=== PATIENT | female | born 1935 | race Caucasian/White ===

== ENCOUNTER 2018-06-07 14:18 | Inpatient (IN) | payer MEDICARE, BC ==
[2018-06-07] MEDS ORDERED: MORPHINE SULFATE 4 MG/ML SYRINGE IVP STA (14:46)
[2018-06-07] MEDS ORDERED: SODIUM CHLORIDE 0.9% 500 ML 500 ML IV ONE (14:52)
--- NOTE | 2018-06-07 14:55 | ED ---
General Adult HPI - General Chief complaint: Fall Stated complaint: Fall Time Seen by Provider: 06/07/18 14:35 Source: patient, EMS, RN notes reviewed Mode of arrival: EMS Limitations: no limitations - History of Present Illness Initial comments: 82-year-old female With a past medical history of asthma, diabetes mellitus, GERD, osteoarthritis presents to the emergency department for chief complaint of fall. Patient is currently staying in an adult foster care facility called [facility]. Patient was apparently transferring from a chair to the bed when she fell. patient states she does not remember this fall. It is unclear if patient lost consciousness prior to fall or after the fall. Patient is not sure if she hit her head but denies headache or neck pain. Patient is complaining of left shoulder pain. Patient states this is more painful when she moves her shoulder. Patient has no other complaints at this time including shortness of breath, chest pain, abdominal pain, nausea or vomiting, headache, or visual changes. - Related Data Home Medications Medication Instructions Recorded Confirmed ALPRAZolam [Xanax] 0.25 mg PO BID PRN 06/07/18 06/07/18 Acetaminophen [Tylenol] 650 mg PO Q6H PRN 06/07/18 06/07/18 Allopurinol [Zyloprim] 200 mg PO DAILY 06/07/18 06/07/18 Budesonide [Pulmicort Flexhaler] 2 puff INHALATION RT-BID 06/07/18 06/07/18 Budesonide [Pulmicort] 0.5 mg INHALATION RT-BID 06/07/18 06/07/18 Cetirizine HCl [Zyrtec] 10 mg PO DAILY 06/07/18 06/07/18 Colloidal Oatmeal [Eucerin Eczema 1 applic TOPICAL BID 06/07/18 06/07/18 Relief] Docusate [Colace] 100 mg PO DAILY 06/07/18 06/07/18 Ergocalciferol (Vitamin D2) 50,000 unit PO Q7D 06/07/18 06/07/18 [Drisdol] Furosemide [Lasix] 20 mg PO DAILY 06/07/18 06/07/18 Hydrocodone/Acetaminophen [[place] 1 tab PO TID PRN 06/07/18 06/07/18 7.5-325] Levalbuterol Nebulized [Xopenex 1.25 mg INHALATION RT-QID PRN 06/07/18 06/07/18 Nebulized] Levothyroxine Sodium [Synthroid] 200 mcg PO SUMOTUTHFRSA 06/07/18 06/07/18 Montelukast [Singulair] 10 mg PO DAILY 06/07/18 06/07/18 Omeprazole 40 mg PO DAILY 06/07/18 06/07/18 Zolpidem [Ambien] 10 mg PO HS 06/07/18 06/07/18 predniSONE 20 mg PO DAILY 06/07/18 06/07/18 sitaGLIPtin [Januvia] 50 mg PO DAILY 06/07/18 06/07/18 traZODone HCL [Desyrel] 100 mg PO HS 06/07/18 06/07/18 Allergies Allergy/AdvReac Type Severity Reaction Status Date / Time aspirin Allergy Rash/Hives Verified 06/07/18 17:36 doxycycline Allergy Nausea & Verified 06/07/18 17:36 Vomiting & Diarrhea meloxicam [From Mobic] Allergy Rash/Hives Verified 06/07/18 17:36 Penicillins Allergy Rash/Hives Verified 06/07/18 17:36 Sulfa (Sulfonamide Allergy Rash/Hives Verified 06/07/18 17:36 Antibiotics) Review of Systems ROS Statement: Those systems with pertinent positive or pertinent negative responses have been documented in the HPI. ROS Other: All systems not noted in ROS Statement are negative. Past Medical History Past Medical History: Asthma, Diabetes Mellitus, GERD/Reflux, Osteoarthritis (OA), Thyroid Disorder Additional Past Medical History / Comment(s): obesity, gout, seasonal allergies History of Any Multi-Drug Resistant Organisms: None Reported Past Surgical History: Cholecystectomy, Hysterectomy, Tonsillectomy Additional Past Surgical History / Comment(s): cataracts Past Psychological History: No Psychological Hx Reported Smoking Status: Former smoker Past Alcohol Use History: None Reported Past Drug Use History: None Reported - Past Family History Daughter(s) History Unknown: Yes Mother Additional Family Medical History / Comment(s): Mother from Aneurysm per patients daughter. General Exam Limitations: no limitations General appearance: alert, in no apparent distress Head exam: Present: atraumatic, normocephalic, normal inspection Eye exam: Present: normal appearance, PERRL, EOMI. Absent: scleral icterus, conjunctival injection, periorbital swelling ENT exam: Present: normal exam, normal oropharynx, mucous membranes moist, TM's normal bilaterally, normal external ear exam Neck exam: Present: normal inspection, full ROM. Absent: tenderness, meningismus, lymphadenopathy Respiratory exam: Present: normal lung sounds bilaterally. Absent: respiratory distress, wheezes, rales, rhonchi, stridor Cardiovascular Exam: Present: regular rate, normal rhythm, normal heart sounds. Absent: systolic murmur, diastolic murmur, rubs, gallop, clicks GI/Abdominal exam: Present: soft, normal bowel sounds. Absent: distended, tenderness, guarding, rebound, rigid Extremities exam: Present: tenderness (Tenderness noted to generalized left shoulder), normal capillary refill (Capillary refill less than 2 seconds, radial pulse 2+ in the left upper extremity), other (Sensation intact in the left upper extremity). Absent: full ROM (Patient unable to move left shoulder) Neurological exam: Present: alert, oriented X3, CN II-XII intact Psychiatric exam: Present: normal affect, normal mood Course Vital Signs 06/07/18 06/07/18 06/07/18 14:19 15:34 16:28 Temperature 97.6 F Pulse Rate 101 H 95 99 Respiratory 18 18 18 Rate Blood Pressure 125/115 132/87 132/87 O2 Sat by Pulse 99 97 96 Oximetry 06/07/18 06/07/18 06/07/18 17:13 20:43 21:29 Temperature 98.3 F Pulse Rate 102 H 86 89 Respiratory 18 18 18 Rate Blood Pressure 145/84 154/93 162/96 O2 Sat by Pulse 94 L 98 95 Oximetry - Reevaluation(s) Reevaluation #1: 06/07/18 15:17 I did attempt to call [facility] to clarify nature of fall but was unsuccessful. I did leave a message. EKG Findings - EKG Comments: EKG Findings:: Sinus tachycardia, ventricular rate 105, QRS faith 94, QTc 465, no ST elevation or depression Medical Decision Making - Medical Decision Making 82-year-old female presents to the emergency department for a chief complaint of fall. Patient is apparently a 2 person assist to bed according to her. Patient states she fell although she does not remember this fall. It is unclear patient lost consciousness prior to or after fall. I did attempt to obtain more history however nurse is unsure. I did try to call the skilled nursing facility and left a message but did not receive a call back. CBC does show a white count of 16.9 with a urinary tract infection with 174 white blood cells and positive nitrites. Patient given Rocephin. Patient is a type II diabetic, glucose is 490. This is currently being managed with fluids. Troponin 0.025, will be trended given patient's fall and loss of consciousness. however, likely related to renal function. After urosepsis established at 1525 lactic acid was retrieved at 1700 which showed 3.9. Patient was given 30 mls/kg based on an ideal body weight of 52.2 kg within 3 hours of sepsis diagnosis. Patient will be admitted for further management. - Lab Data Result diagrams: 06/08/18 07:23 06/08/18 07:23 Lab Results 06/07/18 06/07/18 06/07/18 Range/Units 15:25 15:25 15:25 WBC 16.9 H (3.8-10.6) k/uL RBC 4.60 (3.80-5.40) m/uL Hgb 13.0 (11.4-16.0) gm/dL Hct 41.8 (34.0-46.0) % MCV 91.0 (80.0-100.0) fL MCH 28.3 (25.0-35.0) pg MCHC 31.1 (31.0-37.0) g/dL RDW 14.0 (11.5-15.5) % Plt Count 240 (150-450) k/uL Neutrophils % 86 % Lymphocytes % 9 % Monocytes % 4 % Eosinophils % 1 % Basophils % 0 % Neutrophils # 14.5 H (1.3-7.7) k/uL Lymphocytes # 1.5 (1.0-4.8) k/uL Monocytes # 0.6 (0-1.0) k/uL Eosinophils # 0.1 (0-0.7) k/uL Basophils # 0.1 (0-0.2) k/uL Hypochromasia Slight Sodium 133 L (137-145) mmol/L Potassium 4.0 (3.5-5.1) mmol/L Chloride 96 L (98-107) mmol/L Carbon Dioxide 21 L (22-30) mmol/L Anion Gap 16 mmol/L BUN 30 H (7-17) mg/dL Creatinine 1.60 H (0.52-1.04) mg/dL Est GFR (CKD-EPI)AfAm 34 (>60 ml/min/1.73 sqM) Est GFR (CKD-EPI)NonAf 30 (>60 ml/min/1.73 sqM) Glucose 490 H (74-99) mg/dL Lactic Ac Sepsis Rflx Plasma Lactic Acid Codey (0.7-2.0) mmol/L Calcium 8.9 (8.4-10.2) mg/dL Total Bilirubin 0.9 (0.2-1.3) mg/dL AST 23 (14-36) U/L ALT 31 (9-52) U/L Alkaline Phosphatase 59 (38-126) U/L Troponin I 0.025 (0.000-0.034) ng/mL Total Protein 6.4 (6.3-8.2) g/dL Albumin 3.6 (3.5-5.0) g/dL Urine Color Urine Appearance (Clear) Urine pH (5.0-8.0) Ur Specific [place] (1.001-1.035) Urine Protein (Negative) Urine Glucose (UA) (Negative) Urine Ketones (Negative) Urine Blood (Negative) Urine Nitrite (Negative) Urine Bilirubin (Negative) Urine Urobilinogen (<2.0) mg/dL Ur Leukocyte Esterase (Negative) Urine RBC (0-5) /hpf Urine WBC (0-5) /hpf Urine Bacteria (None) /hpf Urine Mucus (None) /hpf Urine Yeast (Budding) (None) /hpf Acetone, Qual Negative (Negative) 06/07/18 06/07/18 06/07/18 Range/Units 15:25 17:00 17:30 WBC (3.8-10.6) k/uL RBC (3.80-5.40) m/uL Hgb (11.4-16.0) gm/dL Hct (34.0-46.0) % MCV (80.0-100.0) fL MCH (25.0-35.0) pg MCHC (31.0-37.0) g/dL RDW (11.5-15.5) % Plt Count (150-450) k/uL Neutrophils % % Lymphocytes % % Monocytes % % Eosinophils % % Basophils % % Neutrophils # (1.3-7.7) k/uL Lymphocytes # (1.0-4.8) k/uL Monocytes # (0-1.0) k/uL Eosinophils # (0-0.7) k/uL Basophils # (0-0.2) k/uL Hypochromasia Sodium (137-145) mmol/L Potassium (3.5-5.1) mmol/L Chloride (98-107) mmol/L Carbon Dioxide (22-30) mmol/L Anion Gap mmol/L BUN (7-17) mg/dL Creatinine (0.52-1.04) mg/dL Est GFR (CKD-EPI)AfAm (>60 ml/min/1.73 sqM) Est GFR (CKD-EPI)NonAf (>60 ml/min/1.73 sqM) Glucose (74-99) mg/dL Lactic Ac Sepsis Rflx Y Plasma Lactic Acid Codey 3.9 H* (0.7-2.0) mmol/L Calcium (8.4-10.2) mg/dL Total Bilirubin (0.2-1.3) mg/dL AST (14-36) U/L ALT (9-52) U/L Alkaline Phosphatase (38-126) U/L Troponin I (0.000-0.034) ng/mL Total Protein (6.3-8.2) g/dL Albumin (3.5-5.0) g/dL Urine Color Yellow Urine Appearance Turbid H (Clear) Urine pH 5.0 (5.0-8.0) Ur Specific [place] 1.014 (1.001-1.035) Urine Protein 1+ H (Negative) Urine Glucose (UA) 1+ H (Negative) Urine Ketones Negative (Negative) Urine Blood Small H (Negative) Urine Nitrite Positive H (Negative) Urine Bilirubin Negative (Negative) Urine Urobilinogen <2.0 (<2.0) mg/dL Ur Leukocyte Esterase Large H (Negative) Urine RBC 112 H (0-5) /hpf Urine WBC 174 H (0-5) /hpf Urine Bacteria Many H (None) /hpf Urine Mucus Occasional H (None) /hpf Urine Yeast (Budding) Many H (None) /hpf Acetone, Qual (Negative) Disposition Clinical Impression: Syncope, Urinary tract infection, Fx clavicle shaft-closed Disposition: ADMITTED IP TO THIS HOSP Condition: Fair Is patient prescribed a controlled substance at d/c from ED?: No Time of Disposition: 16:47
[2018-06-07] MEDS ORDERED: ONDANSETRON ODT 4 MG TAB PO STA (15:11)
[2018-06-07] MEDS ORDERED: ONDANSETRON 4 MG/2 ML VIAL IVP STA (15:27)
[2018-06-07 15:42] LABS: Basophils # (A) 0.1 k/uL (0-0.2); Basophils % (A) 0 %; Eosinophils # (A) 0.1 k/uL (0-0.7); Eosinophils % (A) 1 %; HCT 41.8 % (34.0-46.0); Hypochromasia Slight; Lymphocytes # (A) 1.5 k/uL (1.0-4.8); Lymphocytes % (A) 9 %; MCH 28.3 pg (25.0-35.0); MCHC 31.1 g/dL (31.0-37.0); Monocytes # (A) 0.6 k/uL (0-1.0); Monocytes % (A) 4 %; Neutrophils # (A) 14.5 k/uL (1.3-7.7); Neutrophils % (A) 86 %; Platelet Count 240 k/uL (150-450); WBC 16.9 k/uL (3.8-10.6)
[2018-06-07 16:00] LABS: ALT 31 U/L (9-52); AST 23 U/L (14-36); Albumin 3.6 g/dL (3.5-5.0); Alkaline Phosphatase 59 U/L (38-126); Anion Gap 16 mmol/L; Appearance,Urine Turbid (Clear); Bacteria,Urine Many /hpf; Bilirubin,Urine Negative (Negative); Blood Urea Nitrogen 30 mg/dL (7-17); Blood,Urine Small (Negative); Budding Yeast,Urine Many /hpf; Calcium 8.9 mg/dL (8.4-10.2); Carbon Dioxide 21 mmol/L (22-30); Chloride 96 mmol/L (98-107); Color,Urine Yellow; Glucose 490 mg/dL (74-99); Glucose,Urine (UA) 1+ (Negative); Ketones,Urine Negative (Negative); Leukocyte Esterase,Urine Large (Negative); Mucus,Urine Occasional /hpf; Nitrite,Urine Positive (Negative); Protein,Urine 1+ (Negative); RBC,Urine 112 /hpf (0-5); Sodium 133 mmol/L (137-145); Specific Gravity,Urine 1.014 (1.001-1.035); Total Bilirubin 0.9 mg/dL (0.2-1.3); Total Protein 6.4 g/dL (6.3-8.2); Urobilinogen,Urine <2.0 mg/dL (<2.0); WBC,Urine 174 /hpf (0-5)
--- NOTE | 2018-06-07 16:05 | CT ---
EXAMINATION TYPE: CT brain ling [place] DATE OF EXAM: 06/07/2018 COMPARISON: None HISTORY: Fall today with left shoulder pain CT DLP: 1567.[address] of the brain was performed. The ventricles, basal cisterns and sulci overlying the cerebral convexities demonstrate mild enlargem ent. There is no evidence for intracranial hemorrhage or sulcal effacement. There is decreased attenuatio n about the periventricular white matter and deep white matter of both cerebral hemispheres, compatib le with chronic small vessel ischemia. No mass effects are seen. If symptoms persist consider MRI. Osseous calvarium is intact. IMPRESSION: 1. Age related atrophic and chronic small vessel ischemic change without acute intracranial process seen at this time. CT Cervical Spine: Unenhanced CT of the cervical spine was performed with bone and soft tissue window settings submitted . Coronal and sagittal reconstruction is obtained. There is normal alignment and prevertebral soft tissues. No evidence for acute cervical fracture . Scattered degenerative disc disease and spondylosis. Biapical scarring. IMPRESSION: 1. No evidence for acute fracture or subluxation of the cervical spine.
--- NOTE | 2018-06-07 16:07 | XR ---
EXAMINATION TYPE: XR shoulder complete LT DATE OF EXAM: 06/07/2018 COMPARISON: NONE HISTORY: shoulder pain after fall TECHNIQUE: Three views are submitted. FINDINGS: There is no oblique fracture of the midshaft of the left clavicle. Arthropathy of the shoulder. Surgi richy clips are seen overlying the mediastinum. IMPRESSION: 1. Mildly displaced fracture midshaft left clavicle
[2018-06-07] MEDS ORDERED: SODIUM CHLORIDE 0.9% 500 ML 500 ML IV STA (16:21)
[2018-06-07] MEDS ORDERED: cefTRIAXone IN SWFI 1,000 MG/10 ML SYRINGE IVP STA (16:21)
[2018-06-07] MEDS ORDERED: SODIUM CHLORIDE 0.9% 600 ML IV STA (17:50)
[2018-06-07] MEDS ORDERED: NALOXONE 0.4 MG/ML 1 ML VIAL IV PRN (18:00)
[2018-06-07] MEDS ORDERED: ONDANSETRON 4 MG/2 ML VIAL IVP PRN (18:00)
[2018-06-07] MEDS: MORPHINE SULFATE 4 MG/ML SYRINGE IV PRN (21:27)
[2018-06-07] MEDS: SODIUM CHLORIDE 0.9% 1,000 ML IV SCH (21:27)
[2018-06-07 22:35] LABS: Glucose,Whole Blood 382 mg/dL (75-99)
[2018-06-07] MEDS ORDERED: ACETAMINOPHEN TAB 325 MG TAB PO PRN (23:42)
[2018-06-07] MEDS ORDERED: FUROSEMIDE 20 MG TAB PO PRN (23:42)
[2018-06-07] MEDS ORDERED: ALPRAZolam 0.25 MG TAB PO PRN (23:42)
[2018-06-07] MEDS ORDERED: ZOLPIDEM 10 MG TAB PO SCH (23:45)
[2018-06-07] MEDS ORDERED: traZODone HCL 100 MG TAB PO SCH (23:45)
[2018-06-07 23:59] LABS: Glucose,Whole Blood 385 mg/dL (75-99)
[2018-06-08] MEDS: INSULIN ASPART (NovoLOG) 100 UNIT/ML VIAL SQ SCH ×5 (00:01→21:09)
[2018-06-08] MEDS: MORPHINE SULFATE 4 MG/ML SYRINGE IV PRN ×2 (03:05→08:41)
[2018-06-08 05:52] LABS: Glucose,Whole Blood 215 mg/dL (75-99)
[2018-06-08] MEDS ORDERED: LEVOTHYROXINE 100 MCG TAB PO SCH (06:30)
[2018-06-08] MEDS: PANTOPRAZOLE 40 MG TABLET PO SCH (06:31)
[2018-06-08] MEDS: LEVOTHYROXINE 100 MCG TAB PO SCH (06:31)
[2018-06-08] MEDS: SODIUM CHLORIDE 0.9% 1,000 ML IV SCH ×3 (06:32→21:07)
[2018-06-08] MEDS: BUDESONIDE 0.5 MG/2 ML NEBU INHALATION SCH ×2 (07:53→19:05)
[2018-06-08] MEDS: ALBUTEROL NEBULIZED 2.5 MG/3 ML INHALATION PRN ×2 (07:53→19:05)
[2018-06-08 08:32] LABS: Calcium 7.9 mg/dL (8.4-10.2)
[2018-06-08 08:38] LABS: Potassium 4.6 mmol/L (3.5-5.1)
[2018-06-08] MEDS: DOCUSATE 100 MG CAP PO SCH (08:42)
[2018-06-08] MEDS: LORATADINE 10 MG TAB PO SCH (08:42)
[2018-06-08] MEDS: MONTELUKAST 10 MG TAB PO SCH (08:42)
[2018-06-08] MEDS: FUROSEMIDE 20 MG TAB PO SCH (08:42)
[2018-06-08] MEDS: predniSONE 20 MG TAB PO SCH (08:42)
[2018-06-08] MEDS: ALLOPURINOL 100 MG TAB PO SCH (08:42)
[2018-06-08] MEDS ORDERED: cefTRIAXone IN SWFI 1,000 MG/10 ML SYRINGE IVP SCH (09:00)
[2018-06-08 10:14] LABS: Basophils % (A) 0 %; Eosinophils # (A) 0.1 k/uL (0-0.7); Eosinophils % (A) 1 %; HCT 36.5 % (34.0-46.0); HGB 11.6 gm/dL (11.4-16.0); Lymphocytes # (A) 2.2 k/uL (1.0-4.8); Lymphocytes % (A) 18 %; MCHC 31.7 g/dL (31.0-37.0); MCV 88.3 fL (80.0-100.0); Mean Platelet Volume 9.7; Monocytes # (A) 0.6 k/uL (0-1.0); Monocytes % (A) 5 %; Neutrophils # (A) 9.3 k/uL (1.3-7.7); Neutrophils % (A) 76 %; Platelet Count 130 k/uL (150-450); RBC 4.14 m/uL (3.80-5.40); RDW 14.2 % (11.5-15.5); WBC 12.2 k/uL (3.8-10.6)
[2018-06-08 11:57] LABS: Glucose,Whole Blood 232 mg/dL (75-99)
[2018-06-08] MEDS: HYDROcodone/APAP 7.5-325MG 1 EACH TAB PO PRN ×2 (13:43→21:09)
--- NOTE | 2018-06-08 14:14 | P.HPIM ---
History of Present Illness H&P Date: 06/08/18 Chief Complaint: Fall with syncope and UTI This is a 82-year-old female, patient of Dr. Cha. Patient lives at [facility] and [facility]. She has a known past medical history of diabetes, asthma, GERD, osteoarthritis, hypothyroidism, recurrent urinary tract infections and an indwelling Her catheter. It is unclear why patient has a indwelling Her catheter. She reports since due to her recurrent UTIs. Patient was brought into the ER after having a fall and syncopal episode. Patient was being transferred from her chair to the bed when she fell. Patient does not remember the fall or passing out. But it appears that she may have had a syncopal episode. She also had a fall and possible syncopal episode last Thursday as well. Patient came into the ER for further evaluation and treatment. Cardiology is been placed on consult. EKG had shown sinus tachycardia with a first-degree AV block heart rate 105. Patient had a computed tomography scan of the brain and cervical spine no evidence of any acute intracranial changes and no fractures. She did have a mildly displaced mid shaft left clavicle fracture noted on shoulder x-ray. Orthopedics have been placed on consult. Patient was found to have evidence of a urinary tract infection and started on IV Rocephin. Likely catheter associated UTI. Urine culture pending. Consult infectious disease and urology. Patient did have evidence of sepsis with elevated white count tachycardic and elevated lactic acid. Improving with IV fluids. Troponins were negative 3. Patient denies any chest pain, shortness breath, nausea or vomiting, bowel movement changes. She reports a decrease in appetite. She did have a creatinine of 1.6. Blood sugars elevated at 490 down to 272 acetone was negative. Review of Systems Please refer to HPI otherwise unremarkable Past Medical History Past Medical History: Asthma, Diabetes Mellitus, GERD/Reflux, Osteoarthritis (OA), Pneumonia, Thyroid Disorder Additional Past Medical History / Comment(s): obesity, gout, seasonal allergies History of Any Multi-Drug Resistant Organisms: None Reported Past Surgical History: Cholecystectomy, Hysterectomy, Tonsillectomy Additional Past Surgical History / Comment(s): cataracts Past Anesthesia/Blood Transfusion Reactions: No Reported Reaction Past Psychological History: Depression Smoking Status: Former smoker Past Alcohol Use History: None Reported Past Drug Use History: None Reported - Past Family History Daughter(s) History Unknown: Yes Mother Additional Family Medical History / Comment(s): Mother from Aneurysm per patients daughter. Medications and Allergies Home Medications Medication Instructions Recorded Confirmed Type ALPRAZolam [Xanax] 0.25 mg PO BID PRN 06/07/18 06/07/18 History Acetaminophen [Tylenol] 650 mg PO Q6H PRN 06/07/18 06/07/18 History Allopurinol [Zyloprim] 200 mg PO DAILY 06/07/18 06/07/18 History Budesonide [Pulmicort Flexhaler] 2 puff INHALATION RT-BID 06/07/18 06/07/18 History Budesonide [Pulmicort] 0.5 mg INHALATION RT-BID 06/07/18 06/07/18 History Cetirizine HCl [Zyrtec] 10 mg PO DAILY 06/07/18 06/07/18 History Colloidal Oatmeal [Eucerin Eczema 1 applic TOPICAL BID 06/07/18 06/07/18 History Relief] Docusate [Colace] 100 mg PO DAILY 06/07/18 06/07/18 History Ergocalciferol (Vitamin D2) 50,000 unit PO Q7D 06/07/18 06/07/18 History [Drisdol] Furosemide [Lasix] 20 mg PO DAILY 06/07/18 06/07/18 History Hydrocodone/Acetaminophen [[place] 1 tab PO TID PRN 06/07/18 06/07/18 History 7.5-325] Levalbuterol Nebulized [Xopenex 1.25 mg INHALATION RT-QID PRN 06/07/18 06/07/18 History Nebulized] Levothyroxine Sodium [Synthroid] 200 mcg PO SUMOTUTHFRSA 06/07/18 06/07/18 History Montelukast [Singulair] 10 mg PO DAILY 06/07/18 06/07/18 History Omeprazole 40 mg PO DAILY 06/07/18 06/07/18 History Zolpidem [Ambien] 10 mg PO HS 06/07/18 06/07/18 History predniSONE 20 mg PO DAILY 06/07/18 06/07/18 History sitaGLIPtin [Januvia] 50 mg PO DAILY 06/07/18 06/07/18 History traZODone HCL [Desyrel] 100 mg PO HS 06/07/18 06/07/18 History Allergies Allergy/AdvReac Type Severity Reaction Status Date / Time aspirin Allergy Rash/Hives Verified 06/07/18 17:36 doxycycline Allergy Nausea & Verified 06/07/18 17:36 Vomiting & Diarrhea meloxicam [From Mobic] Allergy Rash/Hives Verified 06/07/18 17:36 Penicillins Allergy Rash/Hives Verified 06/07/18 17:36 Sulfa (Sulfonamide Allergy Rash/Hives Verified 06/07/18 17:36 Antibiotics) Physical Exam Vitals: Vital Signs Temp Pulse Pulse Resp BP BP Pulse Ox 06/08/18 12:00 98 F 111 H 16 105/69 96 06/08/18 08:11 102 H 06/08/18 08:00 98.2 F 105 H 20 123/82 96 06/08/18 07:56 108 H 20 96 06/08/18 03:18 98.2 F 100 20 136/92 97 06/08/18 00:00 98.0 F 91 18 173/91 98 06/07/18 21:29 98.3 F 89 18 162/96 95 06/07/18 20:43 86 18 154/93 98 06/07/18 17:13 102 H 18 145/84 94 L 06/07/18 16:28 99 18 132/87 96 06/07/18 15:34 95 18 132/87 97 06/07/18 14:19 97.6 F 101 H 18 125/115 99 Intake and Output 06/07/18 06/08/18 06/08/18 22:59 06:59 14:59 Intake Total 970 Output Total 450 Balance -450 970 Intake: IV 650 Sodium Chloride 0.9% 1, 600 000 ml @ 75 mls/hr IV . [id number] [facility] Rx#:[id number] cefTRIAXone 1 gm In 50 Sodium Chloride 0.9% 50 ml @ 100 mls/hr IVPB DAILY [facility] Rx#:[id number] Oral 320 Output: Urine 450 Other: Weight 125.5 kg Head normocephalic Neck supple Lungs clear to auscultation bilaterally no wheezing or crackles Heart regular rate and rhythm S1-S2, no rub or gallop Abdomen is soft nontender nondistended positive bowel sounds no hepatosplenomegaly. Has Her catheter in place Extremities no edema lower extremities. Left arm in sling. Some bruising noted along the left Clavicle with swelling. +2 radial pulse Neuro alert and orientated to 2. Did not know the year Results CBC & Chem 7: 06/08/18 07:23 06/08/18 07:23 Labs: Abnormal Lab Results - Last 24 Hours (Table) 06/07/18 06/07/18 06/07/18 Range/Units 15:25 15:25 15:25 WBC 16.9 H (3.8-10.6) k/uL Plt Count (150-450) k/uL Neutrophils # 14.5 H (1.3-7.7) k/uL Sodium 133 L (137-145) mmol/L Chloride 96 L (98-107) mmol/L Carbon Dioxide 21 L (22-30) mmol/L BUN 30 H (7-17) mg/dL Creatinine 1.60 H (0.52-1.04) mg/dL Glucose 490 H (74-99) mg/dL POC Glucose (mg/dL) (75-99) mg/dL Plasma Lactic Acid [place] (0.7-2.0) mmol/L Calcium (8.4-10.2) mg/dL Urine Appearance Turbid H (Clear) Urine Protein 1+ H (Negative) Urine Glucose (UA) 1+ H (Negative) Urine Blood Small H (Negative) Urine Nitrite Positive H (Negative) Ur Leukocyte Esterase Large H (Negative) Urine RBC 112 H (0-5) /hpf Urine WBC 174 H (0-5) /hpf Urine Bacteria Many H (None) /hpf Urine Mucus Occasional H (None) /hpf Urine Yeast (Budding) Many H (None) /hpf 06/07/18 06/07/18 06/07/18 Range/Units 17:00 22:22 23:58 WBC (3.8-10.6) k/uL Plt Count (150-450) k/uL Neutrophils # (1.3-7.7) k/uL Sodium (137-145) mmol/L Chloride (98-107) mmol/L Carbon Dioxide (22-30) mmol/L BUN (7-17) mg/dL Creatinine (0.52-1.04) mg/dL Glucose (74-99) mg/dL POC Glucose (mg/dL) 382 H 385 H (75-99) mg/dL Plasma Lactic Acid [place] 3.9 H* (0.7-2.0) mmol/L Calcium (8.4-10.2) mg/dL Urine Appearance (Clear) Urine Protein (Negative) Urine Glucose (UA) (Negative) Urine Blood (Negative) Urine Nitrite (Negative) Ur Leukocyte Esterase (Negative) Urine RBC (0-5) /hpf Urine WBC (0-5) /hpf Urine Bacteria (None) /hpf Urine Mucus (None) /hpf Urine Yeast (Budding) (None) /hpf 06/08/18 06/08/18 06/08/18 Range/Units 05:51 07:23 07:23 WBC 12.2 H (3.8-10.6) k/uL Plt Count 130 L (150-450) k/uL Neutrophils # 9.3 H (1.3-7.7) k/uL Sodium 135 L (137-145) mmol/L Chloride (98-107) mmol/L Carbon Dioxide (22-30) mmol/L BUN 29 H (7-17) mg/dL Creatinine 1.36 H (0.52-1.04) mg/dL Glucose 212 H (74-99) mg/dL POC Glucose (mg/dL) 215 H (75-99) mg/dL Plasma Lactic Acid [place] (0.7-2.0) mmol/L Calcium 7.9 L (8.4-10.2) mg/dL Urine Appearance (Clear) Urine Protein (Negative) Urine Glucose (UA) (Negative) Urine Blood (Negative) Urine Nitrite (Negative) Ur Leukocyte Esterase (Negative) Urine RBC (0-5) /hpf Urine WBC (0-5) /hpf Urine Bacteria (None) /hpf Urine Mucus (None) /hpf Urine Yeast (Budding) (None) /hpf 06/08/18 Range/Units 11:47 WBC (3.8-10.6) k/uL Plt Count (150-450) k/uL Neutrophils # (1.3-7.7) k/uL Sodium (137-145) mmol/L Chloride (98-107) mmol/L Carbon Dioxide (22-30) mmol/L BUN (7-17) mg/dL Creatinine (0.52-1.04) mg/dL Glucose (74-99) mg/dL POC Glucose (mg/dL) 232 H (75-99) mg/dL Plasma Lactic Acid [place] (0.7-2.0) mmol/L Calcium (8.4-10.2) mg/dL Urine Appearance (Clear) Urine Protein (Negative) Urine Glucose (UA) (Negative) Urine Blood (Negative) Urine Nitrite (Negative) Ur Leukocyte Esterase (Negative) Urine RBC (0-5) /hpf Urine WBC (0-5) /hpf Urine Bacteria (None) /hpf Urine Mucus (None) /hpf Urine Yeast (Budding) (None) /hpf Microbiology - Last 24 Hours (Table) 06/07/18 15:25 Urine Culture - Preliminary Urine,Voided Thrombosis Risk Factor Assmnt - Choose All That Apply Each Factor Represents 1 point: Medical pt on bed rest, Obesity (BMI >25), Swollen legs (current) Other Risk Factors: Yes Each Risk Factor Represents 3 Points: Age 75 years or older Thrombosis Risk Factor Assessment Total Risk Factor Score: 6 Thrombosis Risk Factor Assessment Level: High Risk Assessment and Plan Assessment: 1. Fall with possible syncopal episode: Computed tomography scan of the brain and neck showing no acute intracranial changes no cervical spine fracture. EKG sinus tachycardia with a first-degree AV block heart rate of 105. Troponins are negative 3 sets. Echocardiogram and carotid ultrasound ordered. Continue telemetry monitoring. Cardiology on consult 2. Her catheter associated UTI with sepsis present on admission: Urine culture pending continue Rocephin. Patient has history of recurrent UTIs. Is unclear why she has a Her catheter. Patient reports Her catheter has been present for about the last 2 months and reports is due to her recurrent UTIs. Consult infectious disease and urology. We'll continue with IV fluids. Lactic acid has normalized with IV fluids. White count is trending down 3. Left clavicle fracture: Arm is currently in sling. Consult orthopedics 4. Acute kidney injury: Baseline creatinine unknown. Creatinine has improved from 1.6-1.36 with IV fluids. Monitor closely while she is continues her home Lasix 20 mg daily 5. Diabetes mellitus type 2 with elevated blood sugars present on admission.. Check A1c. We'll give Levemir 5 units daily. Continue to monitor. Blood sugars are still ranging in the high 200s. Patient is also on scheduled prednisone 20 mg daily. Acetone negative. Januvia on hold due to elevated creatinine 6. History of recurrent UTIs 7. Hypothyroidism 8. History of asthma. Stable no evidence of exacerbation 9. Vitamin D deficiency 10. Generalized anxiety disorder continue Xanax as needed Also notes Dr. Cha, patient's PCP has made adjustments to her home medications prior to admission. She discontinued the Ambien and trazodone. And place patient on Prozac 20 mg daily and hydroxyzine 50 mg at bedtime and can titrate up to 100 mg at bedtime if needed GI prophylaxis Protonix and DVT prophylaxis subcu heparin Time with Patient: Greater than 30 (Greater than 50% of the total time spent in counseling and coordination of care.I performed an examination of the patient and discussed their management with the physician Reports Analyst. I have reviewed the Physician Reports Analyst's notes and agree with the documented findings and plan of care)
--- NOTE | 2018-06-08 14:16 | P.CNOR ---
History of Present Illness - [facility] Consult date: 06/08/18 Requesting physician: Jakub Lion Consult reason: fracture History of present illness: Patient is a 82-year-old female seen at bedside today for left clavicle fracture. She has a past medical history of asthma, diabetes mellitus, GERD, osteoarthritis presented to the emergency department for chief complaint of fall. Patient is currently staying in an adult foster care facility called [facility]. Patient was apparently transferring from a chair to the bed when she fell. Patient states she does not remember this fall. It is unclear if patient lost consciousness prior to fall or after the fall. Patient is not sure if she hit her head but denies headache or neck pain. Patient is complaining of left shoulder pain. Patient states this is more painful when she moves her shoulder. She has no radicular symptoms including numbness or tingling. Patient has no other complaints at this time including shortness of breath, chest pain, abdominal pain, nausea or vomiting, headache, or visual changes. Review of Systems All systems: negative Constitutional: Denies chills, Denies fever Eyes: denies blurred vision, denies pain Ears, nose, mouth and throat: Denies headache, Denies sore throat Cardiovascular: Denies chest pain, Denies shortness of breath Respiratory: Denies cough Gastrointestinal: Denies abdominal pain, Denies diarrhea, Denies nausea, Denies vomiting Genitourinary: Denies dysuria, Denies hematuria Musculoskeletal: Denies myalgias Integumentary: Denies pruritus, Denies rash Neurological: Denies numbness, Denies weakness Psychiatric: Denies anxiety, Denies depression Endocrine: Denies fatigue, Denies weight change Past Medical History Past Medical History: Asthma, Diabetes Mellitus, GERD/Reflux, Osteoarthritis (OA), Pneumonia, Thyroid Disorder Additional Past Medical History / Comment(s): obesity, gout, seasonal allergies History of Any Multi-Drug Resistant Organisms: None Reported Past Surgical History: Cholecystectomy, Hysterectomy, Tonsillectomy Additional Past Surgical History / Comment(s): cataracts Past Anesthesia/Blood Transfusion Reactions: No Reported Reaction Past Psychological History: Depression Smoking Status: Former smoker Past Alcohol Use History: None Reported Past Drug Use History: None Reported - Past Family History Daughter(s) History Unknown: Yes Mother Additional Family Medical History / Comment(s): Mother from Aneurysm per patients daughter. Medications and Allergies Home Medications Medication Instructions Recorded Confirmed Type ALPRAZolam [Xanax] 0.25 mg PO BID PRN 06/07/18 06/07/18 History Acetaminophen [Tylenol] 650 mg PO Q6H PRN 06/07/18 06/07/18 History Allopurinol [Zyloprim] 200 mg PO DAILY 06/07/18 06/07/18 History Budesonide [Pulmicort Flexhaler] 2 puff INHALATION RT-BID 06/07/18 06/07/18 History Budesonide [Pulmicort] 0.5 mg INHALATION RT-BID 06/07/18 06/07/18 History Cetirizine HCl [Zyrtec] 10 mg PO DAILY 06/07/18 06/07/18 History Colloidal Oatmeal [Eucerin Eczema 1 applic TOPICAL BID 06/07/18 06/07/18 History Relief] Docusate [Colace] 100 mg PO DAILY 06/07/18 06/07/18 History Ergocalciferol (Vitamin D2) 50,000 unit PO Q7D 06/07/18 06/07/18 History [Drisdol] Furosemide [Lasix] 20 mg PO DAILY 06/07/18 06/07/18 History Hydrocodone/Acetaminophen [[place] 1 tab PO TID PRN 06/07/18 06/07/18 History 7.5-325] Levalbuterol Nebulized [Xopenex 1.25 mg INHALATION RT-QID PRN 06/07/18 06/07/18 History Nebulized] Levothyroxine Sodium [Synthroid] 200 mcg PO SUMOTUTHFRSA 06/07/18 06/07/18 History Montelukast [Singulair] 10 mg PO DAILY 06/07/18 06/07/18 History Omeprazole 40 mg PO DAILY 06/07/18 06/07/18 History Zolpidem [Ambien] 10 mg PO HS 06/07/18 06/07/18 History predniSONE 20 mg PO DAILY 06/07/18 06/07/18 History sitaGLIPtin [Januvia] 50 mg PO DAILY 06/07/18 06/07/18 History traZODone HCL [Desyrel] 100 mg PO HS 06/07/18 06/07/18 History Allergies Allergy/AdvReac Type Severity Reaction Status Date / Time aspirin Allergy Rash/Hives Verified 06/07/18 17:36 doxycycline Allergy Nausea & Verified 06/07/18 17:36 Vomiting & Diarrhea meloxicam [From Mobic] Allergy Rash/Hives Verified 06/07/18 17:36 Penicillins Allergy Rash/Hives Verified 06/07/18 17:36 Sulfa (Sulfonamide Allergy Rash/Hives Verified 06/07/18 17:36 Antibiotics) Physical Examination ROM of shoulder not tested due to fracture. She has sling in place. Mild swelling and tenderness at mid clavicle. No tenting of the skin. No wounds. She is NVI throughout left upper extremity. Full motor and sensation present. 2+ radial pulse and less than 2 sec cap refill present Results xray of left shoulder shows mild displaced mid clavicle fracture. - Labs Labs: Abnormal Lab Results - Last 24 Hours (Table) 06/07/18 06/07/18 06/07/18 Range/Units 15:25 15:25 15:25 WBC 16.9 H (3.8-10.6) k/uL Plt Count (150-450) k/uL Neutrophils # 14.5 H (1.3-7.7) k/uL Sodium 133 L (137-145) mmol/L Chloride 96 L (98-107) mmol/L Carbon Dioxide 21 L (22-30) mmol/L BUN 30 H (7-17) mg/dL Creatinine 1.60 H (0.52-1.04) mg/dL Glucose 490 H (74-99) mg/dL POC Glucose (mg/dL) (75-99) mg/dL Plasma Lactic Acid Codey (0.7-2.0) mmol/L Calcium (8.4-10.2) mg/dL Urine Appearance Turbid H (Clear) Urine Protein 1+ H (Negative) Urine Glucose (UA) 1+ H (Negative) Urine Blood Small H (Negative) Urine Nitrite Positive H (Negative) Ur Leukocyte Esterase Large H (Negative) Urine RBC 112 H (0-5) /hpf Urine WBC 174 H (0-5) /hpf Urine Bacteria Many H (None) /hpf Urine Mucus Occasional H (None) /hpf Urine Yeast (Budding) Many H (None) /hpf 06/07/18 06/07/18 06/07/18 Range/Units 17:00 22:22 23:58 WBC (3.8-10.6) k/uL Plt Count (150-450) k/uL Neutrophils # (1.3-7.7) k/uL Sodium (137-145) mmol/L Chloride (98-107) mmol/L Carbon Dioxide (22-30) mmol/L BUN (7-17) mg/dL Creatinine (0.52-1.04) mg/dL Glucose (74-99) mg/dL POC Glucose (mg/dL) 382 H 385 H (75-99) mg/dL Plasma Lactic Acid Codey 3.9 H* (0.7-2.0) mmol/L Calcium (8.4-10.2) mg/dL Urine Appearance (Clear) Urine Protein (Negative) Urine Glucose (UA) (Negative) Urine Blood (Negative) Urine Nitrite (Negative) Ur Leukocyte Esterase (Negative) Urine RBC (0-5) /hpf Urine WBC (0-5) /hpf Urine Bacteria (None) /hpf Urine Mucus (None) /hpf Urine Yeast (Budding) (None) /hpf 06/08/18 06/08/18 06/08/18 Range/Units 05:51 07:23 07:23 WBC 12.2 H (3.8-10.6) k/uL Plt Count 130 L (150-450) k/uL Neutrophils # 9.3 H (1.3-7.7) k/uL Sodium 135 L (137-145) mmol/L Chloride (98-107) mmol/L Carbon Dioxide (22-30) mmol/L BUN 29 H (7-17) mg/dL Creatinine 1.36 H (0.52-1.04) mg/dL Glucose 212 H (74-99) mg/dL POC Glucose (mg/dL) 215 H (75-99) mg/dL Plasma Lactic Acid Codey (0.7-2.0) mmol/L Calcium 7.9 L (8.4-10.2) mg/dL Urine Appearance (Clear) Urine Protein (Negative) Urine Glucose (UA) (Negative) Urine Blood (Negative) Urine Nitrite (Negative) Ur Leukocyte Esterase (Negative) Urine RBC (0-5) /hpf Urine WBC (0-5) /hpf Urine Bacteria (None) /hpf Urine Mucus (None) /hpf Urine Yeast (Budding) (None) /hpf 06/08/18 Range/Units 11:47 WBC (3.8-10.6) k/uL Plt Count (150-450) k/uL Neutrophils # (1.3-7.7) k/uL Sodium (137-145) mmol/L Chloride (98-107) mmol/L Carbon Dioxide (22-30) mmol/L BUN (7-17) mg/dL Creatinine (0.52-1.04) mg/dL Glucose (74-99) mg/dL POC Glucose (mg/dL) 232 H (75-99) mg/dL Plasma Lactic Acid Codey (0.7-2.0) mmol/L Calcium (8.4-10.2) mg/dL Urine Appearance (Clear) Urine Protein (Negative) Urine Glucose (UA) (Negative) Urine Blood (Negative) Urine Nitrite (Negative) Ur Leukocyte Esterase (Negative) Urine RBC (0-5) /hpf Urine WBC (0-5) /hpf Urine Bacteria (None) /hpf Urine Mucus (None) /hpf Urine Yeast (Budding) (None) /hpf Microbiology - Last 24 Hours (Table) 06/07/18 15:25 Urine Culture - Preliminary Urine,Voided H & H 06/07/18 06/08/18 Range/Units 15:25 07:23 Hgb 13.0 11.6 (11.4-16.0) gm/dL Hct 41.8 36.5 (34.0-46.0) % Result Diagrams: 06/08/18 07:23 06/08/18 07:23 - Diagnostic results Shoulder x-ray: report reviewed, image reviewed Assessment and Plan Assessment: Left mid clavicle fracture, mild displaced Plan: No surgical intervention planned at this time for her clavicle fracture. She may use sling for comfort as well as ice prn. Recommend pain management per primary team. She may f/u as an outpatient in one week with repeat xrays. Time with Patient: Less than 30
[2018-06-08] MEDS: INSULIN DETEMIR (LEVEMIR) 100 UNIT/ML SYR SQ SCH (15:03)
[2018-06-08] MEDS: FLUoxetine HCL 20 MG CAP PO SCH (15:03)
--- NOTE | 2018-06-08 15:24 | US ---
EXAMINATION TYPE: US carotid duplex BILAT DATE OF EXAM: 06/08/2018 COMPARISON: NONE CLINICAL HISTORY: syncope. Syncope and fall EXAM MEASUREMENTS: RIGHT: Peak Systolic Velocity (PSV) cm/sec ----- Right CCA: 74.6 ----- Right ICA: 82.3 ----- Right ECA: 101.6 ICA/CCA ratio: 1.1 RIGHT: End Diastole cm/sec ----- Right CCA: 13.1 ----- Right ICA: 20.8 ----- Right ECA: 7.9 LEFT: Peak Systolic Velocity (PSV) cm/sec ----- Left CCA: 84.5 ----- Left ICA: 98.4 ----- Left ECA: 111.3 ICA/CCA ratio: 1.2 LEFT: End Diastole cm/sec ----- Left CCA: 11.8 ----- Left ICA: 11.1 ----- Left ECA: 0.0 VERTEBRALS (direction of flow): Right Vertebral: Antegrade Left Vertebral: Antegrade Rhythm: Tachy IMPRESSION: No significant stenosis seen Criteria for Assigning % of Stenosis / Diameter reduction (Estimation based on the indirect measurements of the internal carotid artery velocities (ICA PSV). 1. Normal (no stenosis)=ICA PSV < 125 cm/s: ratio < 2.0: ICA EDV<40 cm/s. 2. Less than 50% stenosis=ICA PSV < 125 cm/s: ratio < 2.0: ICA EDV<40 cm/s. 3. 50 to 69% stenosis=ICA PSV of 125 to 230 cm/s: ration 2.0 ? 4.0: ICA EDV 40-100 cm/s. 4. Greater than 70% stenosis to near occlusion= ICA PSV > 230 cm/s: ratio > 4.0: ICA EDV > 100 cm/s. 5. Near occlusion= ICA PSV velocities may be low or undetectable: variable ratio and ICA EDV. 6. Total occlusion=unable to detect flow.
--- NOTE | 2018-06-08 16:20 | P.GSCN ---
History of Present Illness Consult date: 06/08/18 History of present illness: The patient is an 82-year-old shelter patient, chronically bedridden of indeterminate etiology in the hospital with a prior fall during transfer from wheelchair to her bed. She broke her collarbone. He is a question whether she has had a urinary tract infection with sepsis. We are asked see the patient for this reason. She did have an elevated lactic acid level. 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 Sure creatinine was 1.6 is dropped a 1.36. Her history is of questionable value. Not had any urologic evaluation. She gives not any obvious urologic history. Her examination identifies a grossly normal pelvic examination. She cannot move her lower extremities and is bedridden. His no history of stones or blood in the urine. Review of Systems ROS unobtainable: due to mental status Past Medical History Past Medical History: Asthma, Diabetes Mellitus, GERD/Reflux, Osteoarthritis (OA), Pneumonia, Thyroid Disorder Additional Past Medical History / Comment(s): obesity, gout, seasonal allergies History of Any Multi-Drug Resistant Organisms: None Reported Past Surgical History: Cholecystectomy, Hysterectomy, Tonsillectomy Additional Past Surgical History / Comment(s): cataracts Past Anesthesia/Blood Transfusion Reactions: No Reported Reaction Past Psychological History: Depression Smoking Status: Former smoker Past Alcohol Use History: None Reported Past Drug Use History: None Reported - Past Family History Daughter(s) History Unknown: Yes Mother Additional Family Medical History / Comment(s): Mother from Aneurysm per patients daughter. Medications and Allergies Home Medications Medication Instructions Recorded Confirmed Type ALPRAZolam [Xanax] 0.25 mg PO BID PRN 06/07/18 06/07/18 History Acetaminophen [Tylenol] 650 mg PO Q6H PRN 06/07/18 06/07/18 History Allopurinol [Zyloprim] 200 mg PO DAILY 06/07/18 06/07/18 History Budesonide [Pulmicort Flexhaler] 2 puff INHALATION RT-BID 06/07/18 06/07/18 History Budesonide [Pulmicort] 0.5 mg INHALATION RT-BID 06/07/18 06/07/18 History Cetirizine HCl [Zyrtec] 10 mg PO DAILY 06/07/18 06/07/18 History Colloidal Oatmeal [Eucerin Eczema 1 applic TOPICAL BID 06/07/18 06/07/18 History Relief] Docusate [Colace] 100 mg PO DAILY 06/07/18 06/07/18 History Ergocalciferol (Vitamin D2) 50,000 unit PO Q7D 06/07/18 06/07/18 History [Drisdol] Furosemide [Lasix] 20 mg PO DAILY 06/07/18 06/07/18 History Hydrocodone/Acetaminophen [[place] 1 tab PO TID PRN 06/07/18 06/07/18 History 7.5-325] Levalbuterol Nebulized [Xopenex 1.25 mg INHALATION RT-QID PRN 06/07/18 06/07/18 History Nebulized] Levothyroxine Sodium [Synthroid] 200 mcg PO SUMOTUTHFRSA 06/07/18 06/07/18 History Montelukast [Singulair] 10 mg PO DAILY 06/07/18 06/07/18 History Omeprazole 40 mg PO DAILY 06/07/18 06/07/18 History Zolpidem [Ambien] 10 mg PO HS 06/07/18 06/07/18 History predniSONE 20 mg PO DAILY 06/07/18 06/07/18 History sitaGLIPtin [Januvia] 50 mg PO DAILY 06/07/18 06/07/18 History traZODone HCL [Desyrel] 100 mg PO HS 06/07/18 06/07/18 History Allergies Allergy/AdvReac Type Severity Reaction Status Date / Time aspirin Allergy Rash/Hives Verified 06/07/18 17:36 doxycycline Allergy Nausea & Verified 06/07/18 17:36 Vomiting & Diarrhea meloxicam [From Mobic] Allergy Rash/Hives Verified 06/07/18 17:36 Penicillins Allergy Rash/Hives Verified 06/07/18 17:36 Sulfa (Sulfonamide Allergy Rash/Hives Verified 06/07/18 17:36 Antibiotics) Surgical - Exam Vital Signs Temp Pulse Resp BP Pulse Ox 97.6 F 101 H 18 125/115 99 06/07/18 14:19 06/07/18 14:19 06/07/18 14:19 06/07/18 14:19 06/07/18 14:19 - General well developed, no distress, chronically ill, obese - Eyes PERRL - ENT no hearing loss - Neck trachea midline - Respiratory normal expansion, normal respiratory effort - Cardiovascular Rhythm: regular - Abdomen Abdomen: soft, non tender - Genitourinary indwelling urethral catheter. no obvious pelvic mass no obvious pelvic prolapse - Neurologic minimal lower extremity movement - Musculoskeletal bed ridden - Psychiatric oriented to person Results - Labs 06/08/18 07:23 06/08/18 07:23 Abnormal Lab Results - Last 24 Hours (Table) 06/07/18 06/07/18 06/07/18 Range/Units 17:00 22:22 23:58 WBC (3.8-10.6) k/uL Plt Count (150-450) k/uL Neutrophils # (1.3-7.7) k/uL Sodium (137-145) mmol/L BUN (7-17) mg/dL Creatinine (0.52-1.04) mg/dL Glucose (74-99) mg/dL POC Glucose (mg/dL) 382 H 385 H (75-99) mg/dL Plasma Lactic Acid Codey 3.9 H* (0.7-2.0) mmol/L Calcium (8.4-10.2) mg/dL 06/08/18 06/08/18 06/08/18 Range/Units 05:51 07:23 07:23 WBC 12.2 H (3.8-10.6) k/uL Plt Count 130 L (150-450) k/uL Neutrophils # 9.3 H (1.3-7.7) k/uL Sodium 135 L (137-145) mmol/L BUN 29 H (7-17) mg/dL Creatinine 1.36 H (0.52-1.04) mg/dL Glucose 212 H (74-99) mg/dL POC Glucose (mg/dL) 215 H (75-99) mg/dL Plasma Lactic Acid Codey (0.7-2.0) mmol/L Calcium 7.9 L (8.4-10.2) mg/dL 06/08/18 Range/Units 11:47 WBC (3.8-10.6) k/uL Plt Count (150-450) k/uL Neutrophils # (1.3-7.7) k/uL Sodium (137-145) mmol/L BUN (7-17) mg/dL Creatinine (0.52-1.04) mg/dL Glucose (74-99) mg/dL POC Glucose (mg/dL) 232 H (75-99) mg/dL Plasma Lactic Acid Codey (0.7-2.0) mmol/L Calcium (8.4-10.2) mg/dL Microbiology - Last 24 Hours (Table) 06/07/18 15:25 Urine Culture - Preliminary Urine,Voided Diabetes panel 06/08/18 Range/Units 07:23 Sodium 135 L (137-145) mmol/L Potassium 4.6 (3.5-5.1) mmol/L Chloride 103 (98-107) mmol/L Carbon Dioxide 22 (22-30) mmol/L BUN 29 H (7-17) mg/dL Creatinine 1.36 H (0.52-1.04) mg/dL Glucose 212 H (74-99) mg/dL Calcium 7.9 L (8.4-10.2) mg/dL Calcium panel 06/08/18 Range/Units 07:23 Calcium 7.9 L (8.4-10.2) mg/dL Pituitary panel 06/08/18 Range/Units 07:23 Sodium 135 L (137-145) mmol/L Potassium 4.6 (3.5-5.1) mmol/L Chloride 103 (98-107) mmol/L Carbon Dioxide 22 (22-30) mmol/L BUN 29 H (7-17) mg/dL Creatinine 1.36 H (0.52-1.04) mg/dL Glucose 212 H (74-99) mg/dL Calcium 7.9 L (8.4-10.2) mg/dL Adrenal panel 06/08/18 Range/Units 07:23 Sodium 135 L (137-145) mmol/L Potassium 4.6 (3.5-5.1) mmol/L Chloride 103 (98-107) mmol/L Carbon Dioxide 22 (22-30) mmol/L BUN 29 H (7-17) mg/dL Creatinine 1.36 H (0.52-1.04) mg/dL Glucose 212 H (74-99) mg/dL Calcium 7.9 L (8.4-10.2) mg/dL Assessment and Plan Assessment: impression: chronic urinary retention possible urinary tract infection Recommendation: from a urological stand point given her overall condition I wouldnt recommend anything further in treatment at this juncture As long as she responds to the orthopedic treatment and antibiotics I wont intervene. Her condition is so advanced from an overall quality of life that intervention unless she is truly symptomatic would probably not be recommended.
[2018-06-08 17:08] LABS: Glucose,Whole Blood 362 mg/dL (75-99)
--- NOTE | 2018-06-08 17:11 | P.CRDCN ---
History of Present Illness History of present illness: This is Dr. Zamorano dictating a consult on this patient The patient was interviewed and examined by me IMPRESSION / ASSESSMENT: An episode of fall but the patient does not remember falling. At this point I'm not sure if she actually had a syncopal spell or not. However she did fracture her left clavicle Elevated white count No evidence for acute myocardial injury PLAN: Watch for any tachycardia or bradycardia arrhythmias. 2-D echo and Doppler study HPI Patient apparently fell. She was transferring from the chair to the bed when she fell. She does not remember this fall. At this point is unclear whether she lost consciousness. When I spoke to her she does not remember falling she did not have any premonitory symptoms either She denies any chest pain or palpitations. She does have left shoulder pain particularly when she moves her left shoulder She has suffered a left clavicle fracture and has a sling in place ROS: No fever chills or rigors, no cough, phlegm or expectoration, no nausea, vomiting or diarrhea, no hematuria, dysuria, no musculoskeletal complaints, no strokes or seizures, no skin lesions. EXAMINATION: Blood pressure 123/82 mmHg pulse rate 105 beats a minute afebrile 98.2F respirations 16-20 Breath sounds decreased bilaterally Heart sounds are S2 are normal no murmurs Abdomen soft Extremities are warm REVIEW OF LABS, ECG & MEDICAL DATA White count elevated 16,900, 12,200 Sodium 135 potassium 4.6 BUN 29 creatinine 1.36 Troponin 0.025, 0.027 0.03 Twelve-lead ECG shows sinus tachycardia NV interval mildly prolonged Very subtle ST depression 15 mm in V5 and V6 only Past Medical History Past Medical History: Asthma, Diabetes Mellitus, GERD/Reflux, Osteoarthritis (OA), Thyroid Disorder Additional Past Medical History / Comment(s): obesity, gout, seasonal allergies History of Any Multi-Drug Resistant Organisms: None Reported Past Surgical History: Cholecystectomy, Hysterectomy, Tonsillectomy Additional Past Surgical History / Comment(s): cataracts Past Anesthesia/Blood Transfusion Reactions: No Reported Reaction Past Psychological History: No Psychological Hx Reported Smoking Status: Former smoker Past Alcohol Use History: None Reported Past Drug Use History: None Reported - Past Family History Daughter(s) History Unknown: Yes Mother Additional Family Medical History / Comment(s): Mother from Aneurysm per patients daughter. Medications and Allergies Home Medications Medication Instructions Recorded Confirmed Type ALPRAZolam [Xanax] 0.25 mg PO BID PRN 06/07/18 06/07/18 History Acetaminophen [Tylenol] 650 mg PO Q6H PRN 06/07/18 06/07/18 History Allopurinol [Zyloprim] 200 mg PO DAILY 06/07/18 06/07/18 History Budesonide [Pulmicort Flexhaler] 2 puff INHALATION RT-BID 06/07/18 06/07/18 His tory Budesonide [Pulmicort] 0.5 mg INHALATION RT-BID 06/07/18 06/07/18 History Cetirizine HCl [Zyrtec] 10 mg PO DAILY 06/07/18 06/07/18 History Colloidal Oatmeal [Eucerin Eczema 1 applic TOPICAL BID 06/07/18 06/07/18 History Relief] Docusate [Colace] 100 mg PO DAILY 06/07/18 06/07/18 History Ergocalciferol (Vitamin D2) 50,000 unit PO Q7D 06/07/18 06/07/18 History [Drisdol] Furosemide [Lasix] 20 mg PO DAILY 06/07/18 06/07/18 History Hydrocodone/Acetaminophen [Pavillion 1 tab PO TID PRN 06/07/18 06/07/18 History 7.5-325] Levalbuterol Nebulized [Xopenex 1.25 mg INHALATION RT-QID PRN 06/07/18 06/07/18 History Nebulized] Levothyroxine Sodium [Synthroid] 200 mcg PO SUMOTUTHFRSA 06/07/18 06/07/18 History Montelukast [Singulair] 10 mg PO DAILY 06/07/18 06/07/18 History Omeprazole 40 mg PO DAILY 06/07/18 06/07/18 History Zolpidem [Ambien] 10 mg PO HS 06/07/18 06/07/18 History predniSONE 20 mg PO DAILY 06/07/18 06/07/18 History sitaGLIPtin [Januvia] 50 mg PO DAILY 06/07/18 06/07/18 History traZODone HCL [Desyrel] 100 mg PO HS 06/07/18 06/07/18 History Allergies Allergy/AdvReac Type Severity Reaction Status Date / Time aspirin Allergy Rash/Hives Verified 06/07/18 17:36 doxycycline Allergy Nausea & Verified 06/07/18 17:36 Vomiting & Diarrhea meloxicam [From Mobic] Allergy Rash/Hives Verified 06/07/18 17:36 Penicillins Allergy Rash/Hives Verified 06/07/18 17:36 Sulfa (Sulfonamide Allergy Rash/Hives Verified 06/07/18 17:36 Antibiotics) Physical Exam Vitals: Vital Signs Temp Pulse Pulse Resp BP BP Pulse Ox 06/08/18 12:00 98 F 111 H 16 105/69 96 06/08/18 08:11 102 H 06/08/18 08:00 98.2 F 105 H 20 123/82 96 06/08/18 07:56 108 H 20 96 06/08/18 03:18 98.2 F 100 20 136/92 97 06/08/18 00:00 98.0 F 91 18 173/91 98 06/07/18 21:29 98.3 F 89 18 162/96 95 06/07/18 20:43 86 18 154/93 98 06/07/18 17:13 102 H 18 145/84 94 L Intake and Output 06/08/18 06/08/18 06/08/18 06:59 14:59 22:59 Intake Total 970 Output Total 450 Balance -450 970 Intake: IV 650 Sodium Chloride 0.9% 1, 600 000 ml @ 75 mls/hr IV . [id number] [facility] Rx#:[id number] cefTRIAXone 1 gm In 50 Sodium Chloride 0.9% 50 ml @ 100 mls/hr IVPB DAILY [facility] Rx#:[id number] Oral 320 Output: Urine 450 Other: Weight 125.5 kg Results 06/08/18 07:23 06/08/18 07:23 Cardiac Enzymes 06/07/18 06/08/18 Range/Units 21:08 02:52 Troponin I 0.027 0.030 (0.000-0.034) ng/mL CBC 06/08/18 Range/Units 07:23 WBC 12.2 H (3.8-10.6) k/uL RBC 4.14 (3.80-5.40) m/uL Hgb 11.6 (11.4-16.0) gm/dL Hct 36.5 (34.0-46.0) % Plt Count 130 L (150-450) k/uL Comprehensive Metabolic Panel 06/08/18 Range/Units 07:23 Sodium 135 L (137-145) mmol/L Potassium 4.6 (3.5-5.1) mmol/L Chloride 103 (98-107) mmol/L Carbon Dioxide 22 (22-30) mmol/L BUN 29 H (7-17) mg/dL Creatinine 1.36 H (0.52-1.04) mg/dL Glucose 212 H (74-99) mg/dL Calcium 7.9 L (8.4-10.2) mg/dL Current Medications Generic Name Dose Route Start Last Admin Trade Name Freq PRN Reason Stop Dose Admin Acetaminophen 650 mg 06/07/18 23:42 Tylenol Tab PO Q6H PRN Fever Hydrocodone Bitart/Acetaminophen 1 each 06/08/18 12:46 06/08/18 13:43 Pavillion 7.5-325 PO 1 each TID PRN Administration Pain Albuterol Sulfate 2.5 mg 06/07/18 23:42 06/08/18 07:53 Ventolin Nebulized INHALATION 2.5 mg RT-QID PRN Administration Shortness Of Breath Allopurinol 200 mg 06/08/18 09:00 06/08/18 08:42 Zyloprim PO 200 mg DAILY [facility] Administration Alprazolam 0.25 mg 06/07/18 23:42 Xanax PO BID PRN Anxiety Budesonide 0.5 mg 06/08/18 08:00 06/08/18 07:53 Pulmicort INHALATION 0.5 mg RT-BID [facility] Administration Docusate Sodium 100 mg 06/08/18 09:00 06/08/18 08:42 Colace PO 100 mg DAILY [facility] Administration Ergocalciferol 50,000 unit 06/13/18 09:00 Vitamin D2 PO Q7D [facility] Fluoxetine HCl 20 mg 06/08/18 13:00 06/08/18 15:03 Prozac PO 20 mg DAILY [facility] Administration Furosemide 20 mg 06/08/18 09:00 06/08/18 08:42 Lasix PO 20 mg DAILY [facility] Administration Heparin Sodium (Porcine) 5,000 unit 06/08/18 21:00 Heparin SQ Q12HR [facility] Hydroxyzine HCl 50 mg 06/08/18 21:00 Atarax PO HS RE[facility]IE Sodium Chloride 1,000 mls @ 75 mls/hr 06/07/18 18:00 06/08/18 15:04 Saline 0.9% IV 75 mls/hr .[id number] [facility] Administration Ceftriaxone Sodium 1 gm/ 50 mls @ 100 mls/hr 06/08/18 09:00 06/08/18 10:33 Sodium Chloride IVPB 100 mls/hr DAILY [facility] Administration Insulin Aspart 0 unit 06/07/18 23:45 06/08/18 17:09 Novolog SQ 10 unit ACHS REGGIE Administration Protocol Insulin Detemir 5 unit 06/08/18 14:15 06/08/18 15:03 Levemir SQ 5 unit DAILY [facility] Administration Levothyroxine Sodium 200 mcg 06/08/18 06:30 06/08/18 06:31 Synthroid PO 200 mcg [id number] [facility] Administration Loratadine 10 mg 06/08/18 09:00 06/08/18 08:42 Claritin PO 10 mg DAILY [facility] Administration Montelukast Sodium 10 mg 06/08/18 09:00 06/08/18 08:42 Singulair PO 10 mg DAILY [facility] Administration Morphine Sulfate 2 mg 06/07/18 18:00 06/08/18 08:41 Morphine Sulfate (Inj) IV 2 mg Q4HR PRN Administration Severe Pain Naloxone HCl 0.2 mg 06/07/18 18:00 Narcan IV Q2M PRN Opioid Reversal Ondansetron HCl 4 mg 06/07/18 18:00 Zofran IVP Q8HR PRN Nausea And Vomiting Pantoprazole Sodium 40 mg 06/08/18 07:30 06/08/18 06:31 Protonix PO 40 mg DAILY@0730 [facility] Administration Prednisone 20 mg 06/08/18 09:00 06/08/18 08:42 PO 20 mg DAILY REGGIE Administration Intake and Output 06/08/18 06/08/18 06/08/18 06:59 14:59 22:59 Intake Total 970 Output Total 450 Balance -450 970 Intake: IV 650 Sodium Chloride 0.9% 1, 600 000 ml @ 75 mls/hr IV . [id number] [facility] Rx#:[id number] cefTRIAXone 1 gm In 50 Sodium Chloride 0.9% 50 ml @ 100 mls/hr IVPB DAILY [facility] Rx#:[id number] Oral 320 Output: Urine 450 Other: Weight 125.5 kg 04/09/19 07:23 06/08/18 07:23
--- NOTE | 2018-06-08 19:45 | ECHOF ---
Referral Reason:syncope MEASUREMENTS -------- HEIGHT: 160.0 cm WEIGHT: 125.2 kg BP: IVSd: 1.3 cm (0.6 - 1.1) LVIDd: 3.1 cm (3.9 - 5.3) LVPWd: 1.6 cm (0.6 - 1.1) IVSs: 1.6 cm LVIDs: 2.3 cm LVPWs: 1.8 cm LAESV Index (A-L): 10.79 ml/m Ao Diam: 2.9 cm (2.0 - 3.7) LA Diam: 2.6 cm (2.7 - 3.8) MV E Vincenzo: 1.65 m/s MV DecT: 189 ms MV A Vincenzo: 1.17 m/s MV E/A Ratio: 1.41 RAP: 5.00 mmHg RVSP: 17.71 mmHg FINDINGS -------- Resting tachycardia (HR>100bpm). This was a technically difficult study with suboptimal views. Pt has broken left clavicle and is in a sling. The left ventricular size is normal. There is moderate concentric left ventricular hypertrophy. O verall left ventricular systolic function is normal with, an EF between 60 - 65 %. The RV was not well visualized. Normal LA size by volume 22+/-6 ml/m2. The right atrium was not well visualized. The aortic valve is trileaflet and appears structurally normal. The mitral valve leaflets are mildly thickened. Mild mitral regurgitation is present. Mild tricuspid regurgitation present. The right ventricular systolic pressure, as measured by Doppl er, is 17.71mmHg. There is no pulmonic regurgitation present. The aortic root size is normal. Normal inferior vena cava with normal inspiratory collapse consistent with estimated right atrial pre ssure of 5 mmHg. There is a trivial pericardial effusion present. CONCLUSIONS -------- 1. Resting tachycardia (HR>100bpm). 2. This was a technically difficult study with suboptimal views. 3. Pt has broken left clavicle and is in a sling. 4. The left ventricular size is normal. 5. There is moderate concentric left ventricular hypertrophy. 6. Overall left ventricular systolic function is normal with, an EF between 60 - 65 %. 7. The RV was not well visualized. 8. Normal LA size by volume 22+/-6 ml/m2. 9. The right atrium was not well visualized. 10. The aortic valve is trileaflet and appears structurally normal. 11. The mitral valve leaflets are mildly thickened. 12. Mild mitral regurgitation is present. 13. Mild tricuspid regurgitation present. 14. The right ventricular systolic pressure, as measured by Doppler, is 17.71mmHg. 15. There is no pulmonic regurgitation present. 16. The aortic root size is normal. 17. Normal inferior vena cava with normal inspiratory collapse consistent with estimated right atrial pressure of 5 mmHg. 18. There is a trivial pericardial effusion present. CAREER ADVISOR: Theodora Head RDCS
[2018-06-08 21:02] LABS: Glucose,Whole Blood 391 mg/dL (75-99)
[2018-06-08 21:02] LABS: Amorphous Sediment,Urine Rare /hpf; Appearance,Urine Cloudy (Clear); Bilirubin,Urine Negative (Negative); Blood,Urine Trace (Negative); Color,Urine Light Yellow; Glucose,Urine (UA) 4+ (Negative); Ketones,Urine Negative (Negative); Leukocyte Esterase,Urine Large (Negative); Nitrite,Urine Negative (Negative); PH, Urine 5.5 (5.0-8.0); Protein,Urine Negative (Negative); RBC,Urine 13 /hpf (0-5); Specific Gravity,Urine 1.008 (1.001-1.035); Squamous Epithelial Cell,Urine 1 /hpf (0-4); Urobilinogen,Urine <2.0 mg/dL (<2.0)
[2018-06-08] MEDS: HEPARIN SODIUM,PORCINE 5,000 UNIT/ML 1 ML VIAL SQ SCH (21:07)
[2018-06-08] MEDS: hydrOXYzine HCL 25 MG TAB PO SCH (21:09)
[2018-06-08 21:42] LABS: Hemoglobin A1C 9.5 % (4.0-6.0)
--- NOTE | 2018-06-08 23:46 | CONS ---
CONSULTATION DATE OF SERVICE: 06/08/2018. REASON FOR CONSULTATION: Urinary tract infection. HISTORY OF PRESENT ILLNESS: The patient is an 82-year-old female with a past medical history for chronic indwelling Her catheter. The patient is not sure for how long she has this catheter or the reason for the same. She states usually changed about a month in usually the beginning of the month. Last time it was changed was about 1 month ago. The patient who is an adult foster half-way resident was also brought into the ER after apparently the patient did have a fall/syncopal episode. The patient was being transferred to the bed. The patient did not recall what happened. The patient subsequently on arrival to the ER was complaining of pain to the left shoulder area. The patient did have a x-ray which shows mildly displaced fracture midshaft left clavicle. The patient on admission did not have any fever. Her white count was slightly elevated at 12.2 with elevated creatinine of 1.36. The patient did have a positive UA with large leukocyte esterases and many bacteria. The patient was started on Rocephin. Infectious Disease was consulted for further recommendation regarding antibiotic therapy. The patient currently denies having any chest pain. No shortness of breath. No cough. The patient denies any abdominal pain. No nausea, vomiting, or any diarrhea. REVIEW OF SYSTEMS: Positive points have been mentioned in HPI. Rest of systems are negative. MEDICAL HISTORY: Asthma, diabetes mellitus, schizophrenia, osteoarthritis, pneumonia, hypothyroidism, seasonal allergies. PAST SURGICAL HISTORY: Cholecystectomy, hysterectomy, tonsillectomy, cataract surgery. SOCIAL HISTORY: Remote history of smoking. No drinking or drug use. FAMILY HISTORY: Mother from aneurysm. ALLERGIES: DOXYCYCLINE, PENICILLIN, SULFA. MEDICATION: Medications include the patient is currently on: 1. Tylenol. 2. Irving. 3. Ventolin. 4. Zyloprim. 5. Xanax. 6. Pulmicort. 7. Rocephin 1 g daily. 8. Colace. 9. Lasix. 10.Heparin. 11.Atarax. 12.NovoLog. 13.Levemir. 14.Synthroid. 15.Claritin. 16.Singulair. 17.Morphine sulfate. 18.Narcan. 19.Zofran. 20.Protonix. PHYSICAL EXAMINATION: Blood pressure 105/69 with a pulse of 111, temperature of 98, she is 96% on 2 L nasal cannula. GENERAL DESCRIPTION: An elderly female lying in bed in no distress. No tachypnea or accessory muscle of respiration use. HEENT: Shows no pallor or scleral icterus. Oral mucosa is dry. No pharyngeal erythema or thrush. NECK: Trachea central. No thyromegaly. LUNGS: Unlabored breathing. Clear to auscultation anteriorly. No wheeze or crackle. HEART: S1, S2. Regular rate and rhythm. ABDOMEN: Soft, no tenderness. No guarding or rigidity. EXTREMITIES: Some chronic swelling. No redness was noticed. NEUROLOGICAL: The patient is awake, alert, oriented x3. Mood and affect normal. LABS: Hemoglobin 11.6, white count 12.2 on admission, white count 16.9, BUN of 29, creatinine is 1.36. UA has been positive as mentioned earlier. X-rays with a fracture of the midshaft clavicle bone. DIAGNOSTIC IMPRESSION AND PLAN: 1. Patient admitted to the hospital after the patient did have a fall. This patient who did have a chronic indwelling Her catheter did have elevated white count with concern for possible catheter system tract infection. PLAN: 1. Change her Her catheter. Obtain urine culture from new Her. 2. Rocephin 1 g IV daily. 3. Gentle hydration. 4. We will follow her clinical condition as well as cultures to further adjust medication if needed. Thank you for this consultation. Will follow this patient along with you. MMODL / IJN: [id number] /
[2018-06-09] MEDS: PANTOPRAZOLE 40 MG TABLET PO SCH (06:30)
[2018-06-09 06:31] LABS: Glucose,Whole Blood 225 mg/dL (75-99)
[2018-06-09] MEDS: INSULIN ASPART (NovoLOG) 100 UNIT/ML VIAL SQ SCH ×4 (06:31→22:32)
[2018-06-09 06:50] LABS: Basophils % (A) 0 %; Eosinophils # (A) 0.2 k/uL (0-0.7); Eosinophils % (A) 2 %; HCT 33.1 % (34.0-46.0); HGB 10.9 gm/dL (11.4-16.0); Lymphocytes # (A) 2.3 k/uL (1.0-4.8); Lymphocytes % (A) 24 %; MCH 29.2 pg (25.0-35.0); MCHC 32.8 g/dL (31.0-37.0); MCV 88.9 fL (80.0-100.0); Mean Platelet Volume 7.7; Monocytes # (A) 0.4 k/uL (0-1.0); Monocytes % (A) 4 %; Neutrophils # (A) 6.9 k/uL (1.3-7.7); Neutrophils % (A) 70 %; Platelet Count 171 k/uL (150-450); RBC 3.72 m/uL (3.80-5.40); RDW 14.9 % (11.5-15.5)
[2018-06-09] MEDS: LEVOTHYROXINE 100 MCG TAB PO SCH (08:14)
[2018-06-09] MEDS: HYDROcodone/APAP 7.5-325MG 1 EACH TAB PO PRN ×3 (08:14→22:37)
[2018-06-09] MEDS: ALLOPURINOL 100 MG TAB PO SCH (08:14)
[2018-06-09] MEDS: FLUoxetine HCL 20 MG CAP PO SCH (08:14)
[2018-06-09] MEDS: DOCUSATE 100 MG CAP PO SCH (08:14)
[2018-06-09] MEDS: MONTELUKAST 10 MG TAB PO SCH (08:14)
[2018-06-09] MEDS: HEPARIN SODIUM,PORCINE 5,000 UNIT/ML 1 ML VIAL SQ SCH ×2 (08:14→20:26)
[2018-06-09] MEDS: FUROSEMIDE 20 MG TAB PO SCH (08:15)
[2018-06-09] MEDS: LORATADINE 10 MG TAB PO SCH (08:15)
[2018-06-09] MEDS: predniSONE 20 MG TAB PO SCH (08:15)
[2018-06-09] MEDS: BUDESONIDE 0.5 MG/2 ML NEBU INHALATION SCH ×2 (08:35→20:20)
[2018-06-09] MEDS: ALBUTEROL NEBULIZED 2.5 MG/3 ML INHALATION PRN (08:35)
[2018-06-09 08:58] LABS: Albumin 2.8 g/dL (3.5-5.0); Calcium 7.8 mg/dL (8.4-10.2); Potassium 4.1 mmol/L (3.5-5.1); Total Bilirubin 0.5 mg/dL (0.2-1.3); Total Protein 5.2 g/dL (6.3-8.2)
[2018-06-09] MEDS: INSULIN DETEMIR (LEVEMIR) 100 UNIT/ML SYR SQ SCH (09:53)
[2018-06-09 12:10] LABS: Glucose,Whole Blood 265 mg/dL (75-99)
--- NOTE | 2018-06-09 12:40 | P.PN ---
Subjective Progress Note Date: 06/09/18 This is a 82-year-old female, patient of Dr. Cha. Patient lives at [facility] and [facility]. She has a known past medical history of diabetes, asthma, GERD, osteoarthritis, hypothyroidism, recurrent urinary tract infections and an indwelling Her catheter. It is unclear why patient has a indwelling Her catheter. She reports since due to her recurrent UTIs. Patient was brought into the ER after having a fall and syncopal episode. Patient was being transferred from her chair to the bed when she fell. Patient does not remember the fall or passing out. But it appears that she may have had a syncopal episode. She also had a fall and possible syncopal episode last Thursday as well. Patient came into the ER for further evaluation and treatment. Cardiology is been placed on consult. EKG had shown sinus tachycardia with a first-degree AV block heart rate 105. Patient had a computed tomography scan of the brain and cervical spine no evidence of any acute intracranial changes and no fractures. She did have a mildly displaced mid shaft left clavicle fracture noted on shoulder x-ray. Orthopedics have been placed on consult. Patient was found to have evidence of a urinary tract infection and started on IV Rocephin. Likely catheter associated UTI. Urine culture pending. Consult infectious disease and urology. Patient did have evidence of sepsis with elevated white count tachycardic and elevated lactic acid. Improving with IV fluids. Troponins were negative 3. Patient denies any chest pain, shortness breath, nausea or vomiting, bowel movement changes. She reports a decrease in appetite. She did have a creatinine of 1.6. Blood sugars elevated at 490 down to 272 a cetone was negative. On 06/09/2018 patient is currently resting comfortably in bed. Patient was ev aluated by or so services. Patient also seemed to urology for chronic Her. Patient remains on Rocephin for UTI. Carotid Doppler negative. At this time patient denies chest pain or shortness of breath. Patient denies nausea vomiting or diarrhea. Patient denies any urinary burning or frequency Objective - Vital Signs Vital signs: Vital Signs Temp 97.9 F 06/09/18 08:00 Pulse 100 06/09/18 08:50 Resp 16 06/09/18 08:00 BP 139/100 06/09/18 08:00 Pulse Ox 97 06/09/18 08:38 Intake & Output 06/08/18 06/09/18 06/09/18 18:59 06:59 18:59 Intake Total 1220 200 Output Total 800 525 800 Balance 420 -325 -800 Weight 126 kg Intake: IV 650 Sodium Chloride 0.9% 1, 600 000 ml @ 75 mls/hr IV . [id number] [facility] Rx#:[id number] cefTRIAXone 1 gm In 50 Sodium Chloride 0.9% 50 ml @ 100 mls/hr IVPB DAILY [facility] Rx#:[id number] Oral 570 200 Output: Urine 800 525 800 Uretheral (Her) 75 Other: Voiding Method Indwelling Catheter Indwelling Catheter - Exam Head normocephalic Neck supple Lungs clear to auscultation bilaterally no wheezing or crackles Heart regular rate and rhythm S1-S2, no rub or gallop Abdomen is soft nontender nondistended positive bowel sounds no hepatosplenomegaly. Has Her catheter in place Extremities no edema lower extremities. Left arm in sling. Some bruising noted along the left Clavicle with swelling. +2 radial pulse Neuro alert and orientated to 2. Did not know the year - Labs CBC & Chem 7: 06/09/18 06:14 06/09/18 06:14 Labs: Abnormal Lab Results - Last 24 Hours (Table) 06/08/18 06/08/18 06/08/18 Range/Units 07:23 16:45 20:50 RBC (3.80-5.40) m/uL Hgb (11.4-16.0) gm/dL Hct (34.0-46.0) % Sodium (137-145) mmol/L BUN (7-17) mg/dL Creatinine (0.52-1.04) mg/dL Glucose (74-99) mg/dL POC Glucose (mg/dL) 362 H (75-99) mg/dL Hemoglobin A1c 9.5 H (4.0-6.0) % Calcium (8.4-10.2) mg/dL Total Protein (6.3-8.2) g/dL Albumin (3.5-5.0) g/dL Urine Appearance Cloudy H (Clear) Urine Glucose (UA) 4+ H (Negative) Urine Blood Trace H (Negative) Ur Leukocyte Esterase Large H (Negative) Urine RBC 13 H (0-5) /hpf Urine WBC 132 H (0-5) /hpf Urine WBC Clumps Many H (None) /hpf Amorphous Sediment Rare H (None) /hpf 06/08/18 06/09/18 06/09/18 Range/Units 21:01 06:14 06:14 RBC 3.72 L (3.80-5.40) m/uL Hgb 10.9 L (11.4-16.0) gm/dL Hct 33.1 L (34.0-46.0) % Sodium 135 L (137-145) mmol/L BUN 26 H (7-17) mg/dL Creatinine 1.37 H (0.52-1.04) mg/dL Glucose 230 H (74-99) mg/dL POC Glucose (mg/dL) 391 H (75-99) mg/dL Hemoglobin A1c (4.0-6.0) % Calcium 7.8 L (8.4-10.2) mg/dL Total Protein 5.2 L (6.3-8.2) g/dL Albumin 2.8 L (3.5-5.0) g/dL Urine Appearance (Clear) Urine Glucose (UA) (Negative) Urine Blood (Negative) Ur Leukocyte Esterase (Negative) Urine RBC (0-5) /hpf Urine WBC (0-5) /hpf Urine WBC Clumps (None) /hpf Amorphous Sediment (None) /hpf 06/09/18 06/09/18 Range/Units 06:29 12:07 RBC (3.80-5.40) m/uL Hgb (11.4-16.0) gm/dL Hct (34.0-46.0) % Sodium (137-145) mmol/L BUN (7-17) mg/dL Creatinine (0.52-1.04) mg/dL Glucose (74-99) mg/dL POC Glucose (mg/dL) 225 H 265 H (75-99) mg/dL Hemoglobin A1c (4.0-6.0) % Calcium (8.4-10.2) mg/dL Total Protein (6.3-8.2) g/dL Albumin (3.5-5.0) g/dL Urine Appearance (Clear) Urine Glucose (UA) (Negative) Urine Blood (Negative) Ur Leukocyte Esterase (Negative) Urine RBC (0-5) /hpf Urine WBC (0-5) /hpf Urine WBC Clumps (None) /hpf Amorphous Sediment (None) /hpf Microbiology - Last 24 Hours (Table) 06/08/18 20:50 Urine Culture - Preliminary Urine,Catheterized 06/07/18 17:00 Blood Culture - Preliminary Blood No Growth after 24 hours 06/07/18 15:25 Urine Culture - Preliminary Urine,Voided Gram Neg Bacilli Assessment and Plan Assessment: 1. Fall with possible syncopal episode: Computed tomography scan of the brain and neck showing no acute intracranial changes no cervical spine fracture. EKG sinus tachycardia with a first-degree AV block heart rate of 105. Troponins are negative 3 sets. Carotid Doppler completed showing no significant stenosis. 2-D echo completed showing EF of 60-65%. Per cardiology services continue to watch for tachycardia-bradycardia arrhythmia. 2. Her catheter associated UTI with sepsis present on admission: Urine culture pending continue Rocephin. Patient has history of recurrent UTIs. Is unclear why she has a Her catheter. Patient reports Her catheter has been present for about the last 2 months and reports is due to her recurrent UTIs. Consult infectious disease and urology. We'll continue with IV fluids. Lactic acid has normalized with IV fluids. White count is trending down. Per urology services does not recommend any further treatment. Per infectious disease continue Rocephin. Her catheter has been changed. 3. Left clavicle fracture: Arm is currently in sling. Per orthopedic services no surgical intervention planned at this time continue to use sling for comfort and ice when necessary. Patient to follow-up outpatient in 1 week with repeat x-rays 4. Acute kidney injury: Baseline creatinine unknown. Creatinine has improved from 1.6-1.36 with IV fluids. Monitor closely while she is continues her home Lasix 20 mg daily 5. Diabetes mellitus type 2 with elevated blood sugars present on admission. We'll give Levemir 5 units daily. Continue to monitor. Blood sugars are still ranging in the high 200s. Patient is also on scheduled prednisone 20 mg daily. Acetone negative. Januvia on hold due to elevated creatinine.A1c 9.5 6. History of recurrent UTIs 7. Hypothyroidism 8. History of asthma. Stable no evidence of exacerbation 9. Vitamin D deficiency 10. Generalized anxiety disorder continue Xanax as needed DVT prophylaxis heparin. GI prophylaxis Protonix Her case management patient to return to [facility] as [facility] choice and second choice [facility] Also notes Dr. Cha, patient's PCP has made adjustments to her home medications prior to admission. She discontinued the Ambien and trazodone. And place patient on Prozac 20 mg daily and hydroxyzine 50 mg at bedtime and can titrate up to 100 mg at bedtime if needed I performed an examination of the patient and discussed their management with the Nurse Practitioner. I have reviewed the Nurse Practitioner's notes and agree with the documented findings and plan of care
[2018-06-09 15:59] VITALS: BMI 49.1
--- NOTE | 2018-06-09 16:30 | PN ---
PROGRESS NOTE DATE OF SERVICE: 06/09/2018. REASON FOR FOLLOWUP: Catheter associated urinary tract infection. INTERVAL HISTORY: The patient is currently afebrile. The patient Her catheter was discontinued and changed yesterday. The patient tolerated the procedure. Patient complaining of pain in her left shoulder area. No chest pain, shortness of breath or cough. No abdominal pain. No diarrhea. PHYSICAL EXAMINATION: Blood pressure 143/83 with a pulse of 100. Temperature 98. He is 95% on 2 L nasal cannula. General description is an elderly male lying in bed in no distress. Respiratory system: Unlabored breathing. Clear to auscultation anteriorly. Heart S1, S2. Regular rate and rhythm. Abdomen soft, no tenderness. LABS: Hemoglobin is 10.8, white count 10,000. BUN of 26, creatinine 1.37. Urine showing gram-negative bacilli. DIAGNOSTIC IMPRESSION AND PLAN: Patient admitted to the hospital with a fall with left femoral/clavicular area fracture in this patient who did have a positive UA. Did have elevated white count with concern for catheter associated urinary tract infection. The patient Her catheter has been changed. Initial urine culture currently showing gram-negative. The patient is currently covered on Rocephin. Continue while waiting for the culture to finalize. Continue supportive care. MMODL / IJN: [id number] /
[2018-06-09 17:00] LABS: Glucose,Whole Blood 352 mg/dL (75-99)
[2018-06-09] MEDS: hydrOXYzine HCL 25 MG TAB PO SCH (20:26)
[2018-06-09 22:24] LABS: Glucose,Whole Blood 333 mg/dL (75-99)
[2018-06-10 04:57] VITALS: RESP 16; TEMP 97.2
[2018-06-10] MEDS: SODIUM CHLORIDE 0.9% 1,000 ML IV SCH ×2 (05:01→12:25)
[2018-06-10 06:07] LABS: Glucose,Whole Blood 111 mg/dL (75-99)
[2018-06-10] MEDS: INSULIN ASPART (NovoLOG) 100 UNIT/ML VIAL SQ SCH ×2 (06:35→12:36)
[2018-06-10] MEDS: PANTOPRAZOLE 40 MG TABLET PO SCH (06:36)
[2018-06-10 08:27] LABS: Albumin 3.1 g/dL (3.5-5.0); Calcium 8.5 mg/dL (8.4-10.2); Total Bilirubin 0.7 mg/dL (0.2-1.3); Total Protein 5.8 g/dL (6.3-8.2)
[2018-06-10 08:37] LABS: Basophils # (A) 0.1 k/uL (0-0.2); Basophils % (A) 1 %; Eosinophils # (A) 0.2 k/uL (0-0.7); Eosinophils % (A) 2 %; HCT 39.5 % (34.0-46.0); HGB 11.9 gm/dL (11.4-16.0); Hypochromasia Slight; Lymphocytes # (A) 3.3 k/uL (1.0-4.8); Lymphocytes % (A) 32 %; MCH 28.3 pg (25.0-35.0); MCHC 30.2 g/dL (31.0-37.0); MCV 93.7 fL (80.0-100.0); Mean Platelet Volume 6.7; Monocytes # (A) 0.4 k/uL (0-1.0); Monocytes % (A) 4 %; Neutrophils % (A) 59 %; Platelet Count 182 k/uL (150-450); RBC 4.22 m/uL (3.80-5.40); RDW 14.5 % (11.5-15.5); WBC 10.1 k/uL (3.8-10.6)
[2018-06-10] MEDS: BUDESONIDE 0.5 MG/2 ML NEBU INHALATION SCH (08:40)
[2018-06-10] MEDS: HYDROcodone/APAP 7.5-325MG 1 EACH TAB PO PRN (08:46)
[2018-06-10] MEDS: DOCUSATE 100 MG CAP PO SCH (08:47)
[2018-06-10] MEDS: HEPARIN SODIUM,PORCINE 5,000 UNIT/ML 1 ML VIAL SQ SCH (08:47)
[2018-06-10] MEDS: LORATADINE 10 MG TAB PO SCH (08:47)
[2018-06-10] MEDS: MONTELUKAST 10 MG TAB PO SCH (08:47)
[2018-06-10] MEDS: predniSONE 20 MG TAB PO SCH (08:47)
[2018-06-10] MEDS: FLUoxetine HCL 20 MG CAP PO SCH (08:47)
[2018-06-10] MEDS: ALLOPURINOL 100 MG TAB PO SCH (08:47)
[2018-06-10] MEDS: FUROSEMIDE 20 MG TAB PO SCH (08:47)
[2018-06-10] MEDS ORDERED: INSULIN DETEMIR (LEVEMIR) 100 UNIT/ML SYR SQ SCH (09:00)
[2018-06-10 11:34] LABS: Glucose,Whole Blood 231 mg/dL (75-99)
--- NOTE | 2018-06-10 14:15 | P.DS ---
Providers Date of admission: 06/07/18 18:31 Expected date of discharge: 06/10/18 Attending physician: Berna Valdovinos Consults: 06/07/18 18:00 Consult Physician Stat Consulting Provider: Kameron Rutherford Consult Reason/Comments: possible sycope Do you want consulting provider notified?: Yes 06/08/18 11:13 Consult Physician Stat Consulting Provider: Jakub Lion Consult Reason/Comments: left clavicle fracture Do you want consulting provider notified?: Yes 06/08/18 12:48 Consult Physician Routine Consulting Provider: Mary Duval Consult Reason/Comments: recurrent UTI Do you want consulting provider notified?: Yes 06/08/18 13:57 Consult Physician Routine Consulting Provider: Ozzie Del Toro Consult Reason/Comments: UTI and indwelling casillas catheter Do you want consulting provider notified?: Yes Primary care physician: Kelsie Cha Hospital Course: Discharge diagnosis 1. Fall with possible syncopal episode: Computed tomography scan of the brain and neck showing no acute intracranial changes no cervical spine fracture. EKG sinus tachycardia with a first-degree AV block heart rate of 105. Troponins are negative 3 sets. Carotid Doppler completed showing no significant stenosis. 2-D echo completed showing EF of 60-65%. Patient remains in a normal sinus rhythm 2. Casillas catheter associated UTI with sepsis present on admission: Urine culture pending continue Rocephin. Patient has history of recurrent UTIs. Is unclear why she has a Casillas catheter. Patient reports Casillas catheter has been present for about the last 2 months and reports is due to her recurrent UTIs. Consult infectious disease and urology. We'll continue with IV fluids. Lactic acid has normalized with IV fluids. White count is trending down. Per urology services does not recommend any further treatment. Per infectious disease continue Rocephin. Casillas catheter has been changed. 3. Left clavicle fracture: Arm is currently in sling. Per orthopedic services no surgical intervention planned at this time continue to use sling for comfort and ice when necessary. Patient to follow-up outpatient in 1 week with repeat x-rays 4. Acute kidney injury: Baseline creatinine unknown. Creatinine has improved from 1.6-1.16 with IV fluids. Monitor closely while she is continues her home Lasix 20 mg daily 5. Diabetes mellitus type 2 with elevated blood sugars present on admission. Patient started on Levemir during this admission. Continue to monitor. Blood sugars are still ranging in the high 200s. Patient is also on scheduled prednisone 20 mg daily. Acetone negative. Januvia on hold due to elevated creatinine.A1c 9.5 6. History of recurrent UTIs 7. Hypothyroidism 8. History of asthma. Stable no evidence of exacerbation 9. Vitamin D deficiency 10. Generalized anxiety disorder continue Xanax as needed Her case management patient to be discharged to [facility] Also notes Dr. Cha, patient's PCP has made adjustments to her home medications prior to admission. She discontinued the Ambien and trazodone. And place patient on Prozac 20 mg daily and hydroxyzine 50 mg at bedtime and can titrate up to 100 mg at bedtime if needed Hospital course This is a 82-year-old female, patient of Dr. Cha. Patient lives at [facility] and [place]. She has a known past medical history of diabetes, asthma, GERD, osteoarthritis, hypothyroidism, recurrent urinary tract infections and an indwelling Casillas catheter. It is unclear why patient has a indwelling Casillas catheter. She reports since due to her recurrent UTIs. Patient was brought into the ER after having a fall and syncopal episode. Patient was being transferred from her chair to the bed when she fell. Patient does not remember the fall or passing out. But it appears that she may have had a syncopal episode. She also had a fall and possible syncopal episode last Thursday as well. Patient came into the ER for further evaluation and treatment. Cardiology is been placed on consult. EKG had shown sinus tachycardia with a first-degree AV block heart rate 105. Patient had a computed tomography scan of the brain and cervical spine no evidence of any acute intracranial changes and no fractures. She did have a mildly displaced mid shaft left clavicle fracture noted on shoulder x-ray. Orthopedics have been placed on consult. Patient was found to have evidence of a urinary tract infection and started on IV Rocephin. Likely catheter associated UTI. Urine culture pending. Consult infectious disease and urology. Patient did have evidence of sepsis with elevated white count tachycardic and elevated lactic acid. Improving with IV fluids. Troponins were negative 3. Patient denies any chest pain, shortness breath, nausea or vomiting, bowel movement changes. She reports a decrease in appetite. She did have a creatinine of 1.6. Blood sugars elevated at 490 down to 272 acetone was negative. On 06/09/2018 patient is currently resting comfortably in bed. Patient was evaluated by or so services. Patient also seemed to urology for chronic Casillas. Patient remains on Rocephin for UTI. Carotid Doppler negative. At this time patient denies chest pain or shortness of breath. Patient denies nausea vomiting or diarrhea. Patient denies any urinary burning or frequency 06/10/2018 patient had a fall with possible syncopal episode. Cardiac workup completed. She remains in normal sinus rhythm. Cardiology did signoff case. She was evaluated by orthopedics no surgical intervention needed for the left clavicle fracture. The recommending continue the arm sling and pain control. The patient will follow-up with them in the office in one week for repeat x- rays. Patient's kidney function did improve with IV fluid hydration. He had an at discharge is 1.16. Patient also followed by infectious disease and urology regarding her Casillas catheter associated UTI. Urine culture grew E. coli. She will be discharged with to complete Ceftin 500 mg twice a day for 7 days for treatment for her UTI. Second urine culture did grow yeast. Initially was placed on Diflucan however that doesn't interact with her scheduled Atarax. Therefore Diflucan was not started. Casillas catheter was exchanged during this admission. Patient will be discharged to [facility] for further rehabilitation. Also note that patient's A1c is 9.5 she was started on Levemir during this admission Levemir has been increased to 12 units daily. This will need to be further adjusted at the [facility]CLUD[facility] Recommend checking BMP in 1 week to further follow up on kidney function I performed an examination of the patient and discussed their management with the physician Live Hanger. I have reviewed the Physician Live Hanger's notes and agree with the documented findings and plan of care Patient Condition at Discharge: Stable Plan - Discharge Summary Discharge Rx Participant: No New Discharge Prescriptions: New hydrOXYzine HCL [Atarax] 50 mg PO HS tab FLUoxetine HCL [PROzac] 20 mg PO DAILY cap Insulin Detemir (Levemir) [Levemir] 12 unit SQ DAILY #1 vial Cefuroxime Axetil [Ceftin] 500 mg PO BID #14 tab Continue Levothyroxine Sodium [Synthroid] 200 mcg PO SUMOTUTHFRSA Ergocalciferol (Vitamin D2) [Drisdol] 50,000 unit PO Q7D Montelukast [Singulair] 10 mg PO DAILY Furosemide [Lasix] 20 mg PO DAILY Acetaminophen [Tylenol] 650 mg PO Q6H PRN PRN Reason: Fever Colloidal Oatmeal [Eucerin Eczema Relief] 1 applic TOPICAL BID Levalbuterol Nebulized [Xopenex Nebulized] 1.25 mg INHALATION RT-QID PRN PRN Reason: Shortness Of Breath predniSONE 20 mg PO DAILY Budesonide [Pulmicort] 0.5 mg INHALATION RT-BID Omeprazole 40 mg PO DAILY Docusate [Colace] 100 mg PO DAILY Budesonide [Pulmicort Flexhaler] 2 puff INHALATION RT-BID Allopurinol [Zyloprim] 200 mg PO DAILY Cetirizine HCl [Zyrtec] 10 mg PO DAILY Hydrocodone/Acetaminophen [Ruffin 7.5-325] 1 tab PO TID PRN #9 tablet PRN Reason: Pain ALPRAZolam [Xanax] 0.25 mg PO BID PRN #6 tab PRN Reason: Anxiety Discontinued traZODone HCL [Desyrel] 100 mg PO HS sitaGLIPtin [Januvia] 50 mg PO DAILY Zolpidem [Ambien] 10 mg PO HS Discharge Medication List Acetaminophen [Tylenol] 650 mg PO Q6H PRN 06/07/18 [History] Allopurinol [Zyloprim] 200 mg PO DAILY 06/07/18 [History] Budesonide [Pulmicort Flexhaler] 2 puff INHALATION RT-BID 06/07/18 [History] Budesonide [Pulmicort] 0.5 mg INHALATION RT-BID 06/07/18 [History] Cetirizine HCl [Zyrtec] 10 mg PO DAILY 06/07/18 [History] Colloidal Oatmeal [Eucerin Eczema Relief] 1 applic TOPICAL BID 06/07/18 [History] Docusate [Colace] 100 mg PO DAILY 06/07/18 [History] Ergocalciferol (Vitamin D2) [Drisdol] 50,000 unit PO Q7D 06/07/18 [History] Furosemide [Lasix] 20 mg PO DAILY 06/07/18 [History] Levalbuterol Nebulized [Xopenex Nebulized] 1.25 mg INHALATION RT-QID PRN 06/07/18 [History] Levothyroxine Sodium [Synthroid] 200 mcg PO SUMOTUTHFRSA 06/07/18 [History] Montelukast [Singulair] 10 mg PO DAILY 06/07/18 [History] Omeprazole 40 mg PO DAILY 06/07/18 [History] predniSONE 20 mg PO DAILY 06/07/18 [History] ALPRAZolam [Xanax] 0.25 mg PO BID PRN #6 tab 06/10/18 [Rx] Cefuroxime Axetil [Ceftin] 500 mg PO BID #14 tab 06/10/18 [Rx] FLUoxetine HCL [PROzac] 20 mg PO DAILY cap 06/10/18 [Rx] Hydrocodone/Acetaminophen [Ruffin 7.5-325] 1 tab PO TID PRN #9 tablet 06/10/18 [Rx] Insulin Detemir (Levemir) [Levemir] 12 unit SQ DAILY #1 vial 06/10/18 [Rx] hydrOXYzine HCL [Atarax] 50 mg PO HS tab 06/10/18 [Rx] Follow up Appointment(s)/Referral(s): Kelsie Cha MD [Primary Care Provider] - 1 Week Jakub Lion MD [STAFF PHYSICIAN] - 1 Week Activity/Diet/Wound Care/Special Instructions: Diet: cardiac, diabetic Activity: as tolerated Discharge Disposition: TRANSFER TO SNF/ECF
[2018-06-10 16:28] VITALS: BP 179/76; PULSE 98
--- NOTE | 2018-06-10 20:04 | PN ---
PROGRESS NOTE DATE OF SERVICE: 06/10/2018. REASON FOR FOLLOWUP: E coli catheter associated urinary tract infection. INTERVAL HISTORY: The patient is currently afebrile. Patient has been breathing comfortably. The patient denies having any chest pain. No shortness of breath or cough. No abdominal pain. No diarrhea. PHYSICAL EXAMINATION: Blood pressure is 133/88 with a pulse of 100. Temperature 97.2. She is 97% on 2 L nasal cannula. General description is an elderly female, lying in bed in no distress. Respiratory system: Unlabored breathing. Clear to auscultation anteriorly. Heart S1, S2. Regular rate and rhythm. Abdomen soft No tenderness. LABS: Hemoglobin 11.1, white count of 10.1, creatinine 1.16. Urine with E coli. DIAGNOSTIC IMPRESSION AND PLAN: Patient with E coli catheter associated urinary tract infection status post change of Her catheter organism sensitive to Rocephin. Patient responded to the Rocephin. Remains to be on short course of oral Ceftin. Plan of care discussed with the admitting team nurse practitioner. MMNEGRA / LIANAN: [id number] /
[2018-06-13] MEDS ORDERED: ERGOCALCIFEROL 50,000 UNIT CAP PO SCH (09:00)
== END 2018-06-10 16:40 | DRG 698 ==
LOC: EC 14:18 → 3SCARD 18:31
PROVIDERS: ADMIT Internal Medicine; ATTEND Internal Medicine
DX: T83.511A Infection and inflammatory reaction due to indwelling urethral catheter, initial encounter (principal); A41.51 Sepsis due to Escherichia coli [E. coli]; N17.9 Acute kidney failure, unspecified; Z68.42 Body mass index [BMI] 45.0-49.9, adult; N39.0 Urinary tract infection, site not specified; E11.65 Type 2 diabetes mellitus with hyperglycemia; F20.9 Schizophrenia, unspecified; K21.9 Gastro-esophageal reflux disease without esophagitis; J45.909 Unspecified asthma, uncomplicated; M19.90 Unspecified osteoarthritis, unspecified site; M10.9 Gout, unspecified; E66.9 Obesity, unspecified; R00.0 Tachycardia, unspecified; S42.022A Displaced fracture of shaft of left clavicle, initial encounter for closed fracture; Y84.6 Urinary catheterization as the cause of abnormal reaction of the patient, or of later complication, without mention of misadventure at the time of the procedure; F32.9 Major depressive disorder, single episode, unspecified; I44.0 Atrioventricular block, first degree; E03.9 Hypothyroidism, unspecified; E55.9 Vitamin D deficiency, unspecified; F41.1 Generalized anxiety disorder; L30.9 Dermatitis, unspecified; W05.0XXA Fall from non-moving wheelchair, initial encounter; Y92.129 Unspecified place in nursing home as the place of occurrence of the external cause; Z71.3 Dietary counseling and surveillance; Z79.899 Other long term (current) drug therapy; Z79.890 Hormone replacement therapy; Z87.440 Personal history of urinary (tract) infections; Z74.01 Bed confinement status; Z87.01 Personal history of pneumonia (recurrent); Z90.710 Acquired absence of both cervix and uterus; Z90.49 Acquired absence of other specified parts of digestive tract; Z98.42 Cataract extraction status, left eye; Z98.41 Cataract extraction status, right eye; Z87.891 Personal history of nicotine dependence; Z88.6 Allergy status to analgesic agent; Z88.1 Allergy status to other antibiotic agents; Z88.0 Allergy status to penicillin; Z88.2 Allergy status to sulfonamides; Z88.8 Allergy status to other drugs, medicaments and biological substances; Z82.49 Family history of ischemic heart disease and other diseases of the circulatory system
CPT/HCPCS: 36415; 70450; 72125; 80048; 80053; 81001; 82009; 83036; 83605; 84484; 85025; 87040; 87077; 87086; 87186; 93005; 93306; 93880; 94640; 94760; 96361; 96374; 96375; 96376; 99285